=== PATIENT | male | born 1960 | race African-American/Black ===

== ENCOUNTER 2017-08-29 10:20 | Day surgery (SDC) | payer OTHER ==
[2017-08-29] MEDS ORDERED: Ringers Lactate 1,000 ML IV ONE (10:45)
[2017-08-29] MEDS ORDERED: LIDOCAINE 1% MPF 2 ML AMPULE ONE (12:23)
[2017-08-29] MEDS ORDERED: PROPOFOL 200 MG/20 ML VIAL IV ONE (12:23)
--- NOTE | 2017-08-29 16:19 | OP ---
Surgeon: Adalid Aiken MD Procedure Performed: Esophagogastroduodenoscopy. Indication For Procedure: Odynophagia at the level of the cricoid, probable in the upper esophagus. No significant dysphagia or epigastric symptoms. Plan For Anesthesia: Monitored anesthesia care. Complexity: Average. Technique: After obtaining informed consent from the patient and explaining risks and complications, which include, but are not limited to bleeding, infection, perforation, and anesthesia complications , the patient was placed in a left lateral position and sedation was given. From then on, the scope was advanced through the mouth and carefully guided up till the second portion of the duodenum. Afte r the completion of examination and all diagnostic maneuvers, the scope and equipment were withdrawn and procedure terminated in a safe manner. Findings: Esophagus: Very careful examination of the esophagus was done. There was no gross lesion seen in the entire esophagus. From the proximal to the distal portion, no evidence of ulceration or stenosis. The GE junction was at 42 cm. Stomach: Mild patchy erythema seen in the body and antrum biopsies taken. Upon retroflexion, a larg e mass was seen in the gastric fundic region. This was at least 4 cm in diameter. It had a very lavonne p central ulceration. It appeared firm to biopsy. Multiple biopsies taken from the margins as well as from the center, which was deep, but still firm. High suspicion of malignancy. Duodenum: The bulb and second portion appeared normal. Complications: None. Tolerance To Anesthesia: Excellent. Postoperative Diagnoses: Gastric mass highly suspicious of malignancy in the fundic region, gastriti s. Plan: 1.Await pathology results. 2.CT scan of abdomen and pelvis with contrast, may also need x-ray and labs. 3.Oral PPI once a day. 4.The patient will require surgery. I will discuss this with the patient and family and proceed fro m there. He needs to follow up with us in 1 week. US/MODL Voice ID: [id number] Report ID: [id number]
== END 2017-08-29 13:24 | disposition home or self-care (01) ==
LOC: OR 10:20
PROVIDERS: ATTEND Internal Medicine Gastroenterology
PROC: 0DB68ZX Excision of Stomach, Via Natural or Artificial Opening Endoscopic, Diagnostic (ICD-10-PCS; principal; 2017-08-29 12:30)
DX: K29.50 Unspecified chronic gastritis without bleeding (principal); B96.81 Helicobacter pylori [H. pylori] as the cause of diseases classified elsewhere; D48.1 Neoplasm of uncertain behavior of connective and other soft tissue; E66.9 Obesity, unspecified
CPT/HCPCS: 88305; 88312; J2001

== ENCOUNTER 2018-06-09 07:41 | Day surgery (SDC) | payer OTHER ==
--- OUTSIDE RECORDS SUMMARY | 2018-06-09 07:44 | XMS REPORT | Clinical Summary ---
:1960 Author Organization [facility] Address [address] [place] [address] Care Team Providers Name Role Phone Tyler Amador MD Primary Care Provider Allergies No Known Allergies Medications Medication Sig Dispensed Refills Start Date End Date Status pantoprazole Take 40 mg by 0 Active (PROTONIX) 40 MG EC mouth daily. tablet acetaminophen Take 2 tablets 180 tablet 0 02/08/2018 (TYLENOL) 500 MG (1,000 mg 9 tablet total) by mouth every 8 (eight) hours for 30 days. traMADol (ULTRAM) Take 1 tablet 10 tablet 0 02/08/2018 50 mg tablet (50 mg total) 8 by mouth every 6 (six) hours as needed for moderate pain for up to 3 days. imatinib (GLEEVEC) Take 1 tablet 30 tablet 8 02/12/2018 Discontinued 400 MG chemo tablet (400 mg total) 9 by mouth daily for 30 days. imatinib (GLEEVEC) Take 1 tablet 30 tablet 8 02/27/2018 Discontinued 400 MG chemo tablet (400 mg total) 9 by mouth daily for 30 days. imatinib (GLEEVEC) Take 1 tablet 30 tablet 8 02/27/2018 400 MG chemo tablet (400 mg total) 9 by mouth daily for 30 days. 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 chemotherapy 03/30/2018 Neoplasm of uncertain behavior of connective and other soft tissue 02/06/2018 Encounters Date Type Specialty Care Team Description 06/02/2018 Office Visit General Surgery Delmer Hinton MD gastrointestinal stromal tumor (GIST) of stomach (HCC) (Primary Dx) 05/22/2018 Orders Only Oncology Charles, On antineoplastic Addison, [place] chemotherapy (Primary Dx) 05/21/2018 Hospital Encounter Radiology Tennille Alvares MD PhD 05/21/2018 Hospital Encounter Radiology Tennille Alvares MD PhD 05/21/2018 Office Visit Oncology Giorgio, 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 (HCC) (Primary Dx); MD Tennille PhD On antineoplastic chemotherapy Miriam Orozco MD 05/19/2018 Orders Only Oncology Charles, Malignant Addison, MA gastrointestinal stromal tumor (GIST) of stomach (HCC) (Primary Dx) 04/15/2018 Telephone Oncology Tennille Alvares MD PhD 04/15/2018 Telephone Oncology Miriam Orozco MD 04/13/2018 Telephone Oncology Miriam Orozco MD 04/02/2018 Orders Only Oncology Charles, Malignant Add[place], MA gastrointestinal stromal tumor (GIST) of stomach (HCC) (Primary Dx) 04/02/2018 Orders Only Oncology Charles, Malignant [place], MA gastrointestinal stromal tumor (GIST) of stomach (HCC) (Primary Dx) 03/31/2018 Telephone Oncology Tayler Lainez, WAYNE 03/27/2018 Telephone Oncology Tayler Lainez RN 03/26/2018 Office Visit Oncology Giorgio, Neoplasm of uncertain behavior of connective and other soft tissue (Primary Dx); MD Tennille PhD 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 (HCC); Miriam Orozco On antineoplastic chemotherapy 03/23/2018 Orders Only Pharmacy Susan Valentin, PharmD 03/16/2018 Lab Lab Tennille Alvares MD PhD 03/16/2018 Telephone Oncology Tennille Alvares MD PhD 03/12/2018 Orders Only Oncology Tennille Alvares MD PhD 03/05/2018 Orders Only Oncology Ketty Oakley 03/04/2018 Telephone Oncology Miriam Orozco MD 03/03/2018 Telephone Oncology Miriam Orozco MD 03/02/2018 Telephone Oncology Tennille Alvares MD PhD 02/27/2018 Orders Only Oncology Tayler Lainez RN 02/27/2018 Orders Only Oncology Tayler Lainez RN 02/27/2018 Telephone Oncology Tennille Alvares MD PhD 02/27/2018 Telephone Oncology Tayler Lainez RN 02/27/2018 Orders Only Oncology Tayler Lainez RN 02/27/2018 Telephone Oncology Tennille Alvares MD PhD 02/26/2018 Telephone Oncology Tayler Lainez RN 02/25/2018 Telephone Oncology Tennille Alvares MD PhD 02/25/2018 Telephone Oncology Tennille Alvares MD PhD 02/20/2018 Telephone Oncology Tennille Alvares MD PhD 02/19/2018 Office Visit General Surgery Delmer Hinton MD stromal tumor (GIST) of stomach (HCC) (Primary Dx) 02/18/2018 Telephone Oncology Tayler Lainez RN 02/13/2018 Telephone Oncology Miriam Orozco MD 02/12/2018 Orders Only Oncology Tayler Lainez RN 02/10/2018 Telephone Oncology Miriam Orozco MD 02/10/2018 Telephone Oncology Miriam Orozco MD 02/09/2018 Orders Only Oncology Charles, GIST (gastrointestinal Addison, MALINDA stroma tumor), malignant, colon (HCC) (Primary Dx) 02/06/2018 Anesthesia Event General Surgery [facility] Sarika huynh, ABELARDO 02/06/2018 Surgery General Surgery Delmer Hinton Exploratory Laparotomy, MD Osman Diagnostic Laparoscopy,and, Gastric Nodule Biopsy, 02/06/2018 - Hospital Encounter General Surgery Delmer Hinton Neoplasm of uncertain 02/08/2018 MD Osman behavior of connective and other soft tissue 01/27/2018 Pre-Admit Testing Pre-Admission Delmer Hinton Preop testing ( Primary Appointment Testing MD Osman Dx) 01/13/2018 Hospital Encounter Radiology Delmer Hinton Canceled (Rosemarie Brewer MD Order Error) 01/09/2018 Hospital Encounter Radiology Delmer Hinton MD 12/25/2017 Office Visit General Surgery Delmer Hinton Stromal tumor of the MD Osman stomach (Primary Dx) after 06/08/2017 Family History Medical History Relation Name Comments Prostate cancer Father Kidney cancer Mother Relation Name Status Comments Father Mother Social History Tobacco Use Types Packs/Day Years Used Date Never Smoker Smokeless Tobacco: Never Used Alcohol Use Drinks/Week oz/Week Comments No Alcohol Habits Answer Date Recorded How often do you have a drink containing alcohol? Never 01/27/2018 How many drinks containing alcohol do you have on a typical Not asked day when you are drinking? How often do you have six or more drinks on one occasion? Not asked Sex Assigned at Date Recorded Not on file Job Start Date Occupation Industry Not on file Not on file Not on file Travel History Travel Start Travel End No recent travel history available. Last Filed Vital Signs Vital Sign Reading Time Taken Blood Pressure 145/80 03/26/2018 4:10 PM DISCOVERY GUIDE Pulse 97 03/26/2018 4:10 PM DISCOVERY GUIDE Temperature 36 C (96.8 F) 02/08/2018 7:47 AM DISCOVERY GUIDE Respiratory Rate 18 02/08/2018 7:47 AM DISCOVERY GUIDE Oxygen Saturation 98% 02/08/2018 7:47 AM DISCOVERY GUIDE Inhaled Oxygen Concentration - - Weight 120 kg (263 lb 9.6 oz) 03/26/2018 4:10 PM DISCOVERY GUIDE Height 175.3 cm (5' 9") 03/26/2018 4:10 PM DISCOVERY GUIDE Body Mass Index 38.93 03/26/2018 4:10 PM DISCOVERY GUIDE Plan of Treatment Date Type Specialty Care Team Description 06/18/2018 Office Visit Oncology Tennille Alvares MD PhD [address] [place] [address] [phone] Miriam Orozco MD [address] [facility] [address] [place] [address] Health Maintenance Due Date Last Done Comments COLON CANCER SCREENING 11/16/2009 SHINGLES VACCINES (#1) 11/16/2009 INFLUENZA VACCINE 09/24/2018 01/05/2018 Implants Implanted Type Area Carbon Furnace Operator Device Shelf Model / Identifier Expiration Serial / Date Lot Clip Ligtng Weck Hemoclip Plus W/ Tape Ti - [id number] Medical N/A: N/A TELEFLEX MEDICAL [id number] / Implanted: Qty: 1 on 02/06/2018 by Delmer Hinton MD Clips for / Internal Use Clip Ligtng Weck Hemoclip Plus W/ Tape Ti Med - [id number] Medical N/A: N/ A WECK CLOSURE [id number] / Implanted: Qty: 1 on 02/06/2018 by Delmer Hinton MD Clips for SYSTEMS / Internal Use Procedures Procedure Name Priority Date/Time Associated Comments Diagnosis CT CHEST EXTERNAL Routine 05/18/2018 8:52 Results for this STUDY AM CDT procedure are in the results section. CT ABD/PELVIC EXTERNAL Routine 05/18/2018 8:52 Results for this STUDY AM CDT procedure are in the results section. CT CHEST W CONTRAST Routine 03/12/2018 ABDOMEN W CONTRAST POC GLUCOSE Routine 02/07/2018 8:35 Results for this PM DISCOVERY GUIDE procedure are in the results section. POC GLUCOSE Routine 02/07/2018 4:39 Results for this PM DISCOVERY GUIDE procedure are in the results section. POC GLUCOSE Routine 02/07/2018 11:55 Results for this AM DISCOVERY GUIDE procedure are in the results section. POC GLUCOSE Routine 02/07/2018 8:37 Results for this AM DISCOVERY GUIDE procedure are in the results section. HC COMPLETE BLD COUNT Routine 02/07/2018 4:30 Results for this W/AUTO DIFF AM DISCOVERY GUIDE procedure are in the results section. ESTIMATED GFR Routine 02/07/2018 4:00 Results for this AM DISCOVERY GUIDE procedure are in the results section. PHOSPHORUS LEVEL Routine 02/07/2018 4:00 Results for this AM DISCOVERY GUIDE procedure are in the results section. MAGNESIUM LEVEL Routine 02/07/2018 4:00 Results for this AM DISCOVERY GUIDE procedure are in the results section. BASIC METABOLIC PANEL Routine 02/07/2018 4:00 Results for this AM DISCOVERY GUIDE procedure are in the results section. POC GLUCOSE Routine 02/06/2018 10:43 Results for this PM DISCOVERY GUIDE procedure are in the results section. POC GLUCOSE Routine 02/06/2018 2:07 Results for this PM DISCOVERY GUIDE procedure are in the results section. SURGICAL PATHOLOGY Routine 02/06/2018 11:43 Results for this REQUEST AM DISCOVERY GUIDE procedure are in the results section. SURGICAL PATHOLOGY Routine 02/06/2018 11:43 Results for this REQUEST AM DISCOVERY GUIDE procedure are in the results section. MISCELLANEOUS REFERRAL Routine 02/06/2018 11:43 Results for this TEST AM DISCOVERY GUIDE procedure are in the results section. XR CHEST 1 VW PORTABLE Routine 02/06/2018 11:00 Results for this AM DISCOVERY GUIDE procedure are in the results section. CENTRAL LINE Routine 02/06/2018 9:39 AM DISCOVERY GUIDE Procedure Note - Paul Novak MD - 02/06/2018 9:39 AM DISCOVERY GUIDE Central line Performed by: Paul Novak MD Authorized by: Paul Novak MD Start Time: 02/06/2018 8:58 AM End Time: 02/06/2018 9:03 AM Staff: Performed by: Anesthesiologist Preprocedure:patient identified, IV checked, site and side verified, risks and benefits discussed, procedure verified, surgical consent complete, patient position confirmed, monitors and equipment checked and pre-op evaluation complete MSBT: antiseptic used during central venous catheter insertion, all elements of maximal sterile barrier technique followed, hand hygiene performed prior to central venous catheter insertion, cap/gown used by other personnel during central venous catheter insertion, solutions labeled and all ports not used during insertion clamped TIme Out Performed: 02/06/2018 8:58 AM Indications: Indications: Vascular access Anesthesia: Anesthesia: General Procedure details: Patient position: Supine Catheter Type: Double lumen Catheter Size: 8 Fr Catheter Site: internal jugular vein Catheter site laterality: Right Ultrasound guidance used: No Ultrasound image saved: No Number of attempts: 1 Successful placement: Yes Guidewire removal: Guidewire removal is confirmed Guidewire removal witnessed by: Skyler Fang RN Post-procedure: Post-procedure: line sutured, sterile dressing applied per protocol and ports flushed with saline Post-procedure: Blood cleaned with CHG and sterile caps on all hubs Assessment: Blood return through all ports and free fluid flow Patient tolerance: Patient tolerated the procedure well with no immediate complications NV AN ELECTIVE ENDOTRACHEAL AIRWAY Routine 02/06/2018 9:35 AM DISCOVERY GUIDE Procedure Note - Paul Novak MD - 02/06/2018 9:35 AM DISCOVERY GUIDE ANESTHESIA INTUBATION Performed by: Paul Novak MD Authorized by: Paul Novak MD Location: OR Urgency: Elective Difficult Airway: No Preoxygenated with 100% O2: Yes C-spine Precautions Maintained Throughout: Yes Mask Ventilation: Easy mask Final Airway Type: Endotracheal airway Final Endotracheal Airway: ETT Technique Used: Direct laryngoscopy Blade Type: Lakhani Laryngoscope Blade/Videolaryngoscope Blade Size: 2 ETT Size (mm): 8.0 Measured from: Lips ETT to Lips (cm): 24 Placement Verified by: CO2 detection, direct visualization and equal breath sounds Laryngoscopic view: Grade IIa - partial view of glottis Rapid Sequence Induction (RSI): No Modified RSI: No Number of Attempts at Approach: 1 LAPAROSCOPY, DIAGNOSTIC 02/06/2018 8:25 AM DISCOVERY GUIDE Neoplasm of uncertain behavior of connective and other soft tissue Case Notes POSSIBLE EXTENDED RECOVERY NEEDED Special Needs POSSIBLE EXTENDED RECOVERY NEEDED ESTIMATED GFR Routine 01/27/2018 1:20 PM Results for this DISCOVERY GUIDE procedure are in the results section. TYPE AND SCREEN Routine 01/27/2018 1:20 PM Preop testing Results for this DISCOVERY GUIDE procedure are in the results section. COMPREHENSIVE METABOLIC Routine 01/27/2018 1:20 PM Preop testing Results for this PANEL DISCOVERY GUIDE procedure are in the results section. HC COMPLETE BLD COUNT Routine 01/27/2018 1:20 PM Preop testing Results for this W/AUTO DIFF DISCOVERY GUIDE procedure are in the results section. ECG PRE/POST OP Routine 01/27/2018 1:07 PM Preop testing Results for this DISCOVERY GUIDE procedure are in the results section. CT CHEST EXTERNAL STUDY Routine 09/12/2017 8:56 AM Results for this CDT procedure are in the results section. after 06/08/[address] Chest External Study (05/18/2018 8:52 AM CDT)Only the most recent of2 resultswithin the time period is included. Narrative Performed At This exam was not acquired at a [facility] facility and has not been [facility] interpreted by a [facility] Provider.The exam was imported into our imaging system for comparisons purposes. Performing Organization Address [facility] [place] Phone Number [employer] [address] [place] [address] CT Abd/Pelvic External Study (05/18/2018 8:52 AM CDT) Narrative Performed At This exam was not acquired at a [facility] facility and has not been [facility] interpreted by a [facility] Provider.The exam was imported into our imaging system for comparisons purposes. Performing Organization Address [facility] [place] Phone Number [employer] [address] [place] [address] CT Chest W Contrast Abdomen W Contrast (03/12/2018) Narrative Performed At POC glucose (02/07/2018 8:35 PM DISCOVERY GUIDE)Only the most recent of6 resultswithin the time period is included. POC glucose 119 (H) 65 - 99 mg/dL [facility] Comment: [facility] Notified RN Meter ID: [id number] Meeting Specialist: Sotero Varela Performing Organization Address City/State/Zipcode Phone Number [facility] DEPARTMENT OF PATHOLOGY AND [address] [place] [phone] CBC with platelet and differential (02/07/2018 4:30 AM DISCOVERY GUIDE)Only the most recent of2 resultswithin the time period is included. WBC 10.19 4.50 - 11.00 k/uL [facility] RBC 3.98 (L) 4.40 - 6.00 m/uL [facility] HGB 11.3 (L) 14.0 - 18.0 g/dL [facility] HCT 35.3 (L) 41.0 - 51.0 % [facility] MCV 88.7 82.0 - 100.0 fL [facility] MCH 28.4 27.0 - 34.0 pg [facility] MCHC 32.0 31.0 - 37.0 g/dL [facility] RDW - SD 48.5 37.0 - 55.0 fL [facility] MPV 10.5 8.8 - 13.2 fL [facility] Platelet count 191 150 - 400 k/uL [facility] Nucleated RBC 0.00 /100 WBC [facility] Neutrophils 63.8 39.0 - 69.0 % [facility] Lymphocytes 24.0 (L) 25.0 - 45.0 % [facility] Monocytes 10.7 (H) 0.0 - 10.0 % [facility] Eosinophils 0.9 0.0 - 5.0 % [facility] Basophils 0.3 0.0 - 1.0 % [facility] Immature granulocytes 0.3Comment: "Immature 0.0 - 1.0 % [facility] granulocytes" [facility] (promyelocytes, myelocytes, metamyelocytes) Specimen Blood Performing Organization Address City/[facility]/Zipcode Phone Number [facility] DEPARTMENT OF PATHOLOGY AND [address] [place] [id number] [place] [phone] Estimated GFR (02/07/2018 4:00 AM DISCOVERY GUIDE)Only the most recent of2 resultswithin the time period is included. Estimated GFR >=90 mL/min/1.73 m2 [facility] Comment: HOSPITAL CatergoryUnitsInterpretation G1 >=90 Normal or high G2 60-89Mildly decreased G2m37-83Znwhdn to moderately decreased [id number] to severely decreased G4 15-29Severely decreased G5 <15Kidney failure The eGFR was calculated using the Chronic Kidney Disease Epidemiology Collaboration (CKD-EPI) equation. Interpretation is based on recommendations of the National Kidney Foundation-Kidney Disease Outcomes Quality Initiative (NKF-KDOQI) published in 2014. Specimen Plasma specimen Performing Organization Address City/[facility] Phone Number [facility] DEPARTMENT OF PATHOLOGY AND [address] [place] [address] Phosphorus level (02/07/2018 4:00 AM DISCOVERY GUIDE) Phosphorus 3.4 2.4 - 4.5 mg/dL [facility] Specimen Plasma specimen Performing Organization Address City/[facility] Phone Number [facility] DEPARTMENT OF PATHOLOGY AND [address] [place] [address] Magnesium level (02/07/2018 4:00 AM DISCOVERY GUIDE) Magnesium 1.8 1.6 - 2.6 mg/dL [facility] Specimen Plasma specimen Performing Organization Address City/[facility] Phone Number [facility] DEPARTMENT OF PATHOLOGY AND [address] [place] [phone] Basic metabolic panel (02/07/2018 4:00 AM DISCOVERY GUIDE) Sodium 137 135 - 148 mEq/L [facility] Potassium 3.9 3.5 - 5.0 mEq/L [facility] Chloride 100 98 - 112 mEq/L [facility] CO2 25 24 - 31 mEq/L [facility] Anion gap 12@ANIO 7 - 15 mEq/L [facility] BUN 7 6 - 20 mg/dL [facility] Creatinine 0.66 (L) 0.70 - 1.20 mg/dL [facility] Glucose 109 (H) 65 - 99 mg/dL [facility] Calcium 8.5 8.3 - 10.2 mg/dL [facility] Specimen Plasma specimen Performing Organization Address City/State/Zipcode Phone Number [facility] DEPARTMENT OF PATHOLOGY AND [address] [place] [address] GENOMIC MEDICINE [facility] [address] [place] [address] Miscellaneous referral test (02/06/2018 11:43 AM DISCOVERY GUIDE) [facility] test name GI stromal tumor mutation [id number] [facility] test result SEE NOTE (A) [facility] Comment: Gastrointestinal Stromal Tumor Mutation [facility] test code [id number] Block ID [id number] - - - - - - - - - - - - - - - - - - - - - - - - - - - - - - GIST Interpretation Detected abnormal ---- 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 ([id number], [id number]) This result has been reviewed and approved by Zhanna Das, Computing Architect Test information: Gastrointestinal Stromal Tumor Mutation CHARACTERISTICS: This assay is designed to detect mutations in the KIT gene exons 9, 11, 13, 14, 17 or 18 and in PDGFRA gene exons 12, 14 or 18.Mutations in the KIT and PDGFRA genes may indicate responsiveness to certain targeted therapies. For specific treatment recommendations please refer to NCCN Clinical Practice Guidelines in Oncology for Soft Tissue Sarcoma (Gastrointestinal Stromal Tumor section) (www.nccn.org). GENES TESTED: KIT gene (NM_000222.2) exons 9, 11, 13, 14, 17, and 18 and PDGFRA gene (NM_006206.4) exons 12, 14, and 18 METHODOLOGY: Genomic DNA is isolated from microscopically-guided dissection of tumor tissue and then enriched for the targeted regions of the tested genes. The mutation status of the targeted genes is determined by massively parallel sequencing (next generation sequencing). The hg19 (GRCh37) reference sequence is used as a reference for identifying genetic mutations. LIMITATIONS: This test will not detect mutations in other locations within the KIT or PDGFRA genes, in other genes, or below the limit of detection. This test evaluates for variants in tumor tissue only and cannot distinguish between somatic and germline variants. It is possible that some large insertion/deletion mutations (especially those greater than 60bp) may not be detected. Tissue samples yielding at least 10ng are acceptable but may yield suboptimal results if yield is less than 50ng. LIMIT OF DETECTION: 5 percent mutant allele frequency for single nucleotide variants (SNV) and small to medium sized multi-nucleotide variants (MNV) (insertions/deletions less than 60bp). ANALYTICAL SENSITIVITY (PPA): Analytical sensitivity for all variant classes is available through this link: [email or web address]/Tests/Pdf/294. CLINICAL DISCLAIMER: Results of this test must always be interpreted within the clinical context and other relevant data and should not be used alone for a diagnosis of malignancy. This test is not intended to detect minimal residual disease. Test developed and characteristics determined by [facility]. See Compliance Statement B: [employer]/CS ---- Order comments Gastrointestinal Stromal Tumor Mutation BLOCK [id number] Gastrointestinal Stromal Tumor Mutation [id number] Test performed by: [facility] [address] [place], [place] Narrative Performed At [facility] Gastrointestinal Stromal Tumor [id number] block [id number] DOS: 02/06/2019 03/17/201811:37 [facility] Performing Organization Address City/State/Zipcode Phone Number [facility] [address] [place] [address] [facility] [address] [place] [address] Surgical pathology request (02/06/2018 11:43 AM DISCOVERY GUIDE)Only the most recent of2 resultswithin the time period is included. [facility] DEPARTMENT OF PATHOLOGY AND GENOMIC MEDICINE Surgical pathology See link below for PDF Lab [facility] DEPARTMENT OF report Report PATHOLOGY AND GENOMIC MEDICINE Result status This is Supplemental Report [facility] DEPARTMENT OF for [id number] PATHOLOGY AND GENOMIC MEDICINE Narrative Performed At [facility] DEPARTMENT OF PATHOLOGY AND GENOMIC Gastrointestinal Stromal Tumor MEDICINE [id number] [id number] DOS: 02/06/2019 03/17/201811:37 MPAJGS Performing Organization Address [facility] [place] Phone Number [facility] DEPARTMENT OF PATHOLOGY AND [address] [place] [address] GENOMIC MEDICINE XR Chest 1 Vw Portable (02/06/2018 11:00 AM DISCOVERY GUIDE) Narrative Performed At EXAMINATION:XR CHEST 1 VW PORTABLE [facility] CLINICAL HISTORY:57 years Male Confirm new central line placement [facility] COMPARISON:09/12/2017 IMPRESSION: 1.Right IJ line terminates over the proximal SVC. No pneumothorax. 2.Cardiomediastinal silhouette is enlarged with broadening of the superior mediastinum. Some of this is likely related to rotation. 3.Bibasilar atelectasis. No consolidation or effusion. 4.Degenerative changes in the spine. [facility]-[id number] Procedure Note Hm Interface, Radiology Results Incoming - 02/06/2018 11:15 AM DISCOVERY GUIDE EXAMINATION: XR CHEST 1 VW PORTABLE CLINICAL HISTORY:57 years Male Confirm new central line placement [facility] COMPARISON: 09/12/2017 IMPRESSION: 1. Right IJ line terminates over the proximal SVC. No pneumothorax. 2. Cardiomediastinal silhouette is enlarged with broadening of the superior mediastinum. Some of this is likely related to rotation. 3. Bibasilar atelectasis. No consolidation or effusion. 4. Degenerative changes in the spine. [facility]-[id number] Performing Organization Address [facility] Phone Number [facility] [address] [place] [address] Type and screen (01/27/2018 1:20 PM DISCOVERY GUIDE) ABO grouping O [facility] Rh type POS [facility] Antibody screen (gel) NEG [facility] Specimen Blood Performing Organization Address City/[facility]/Zipcode Phone Number [facility] DEPARTMENT OF PATHOLOGY AND [address] [place] [address] GENOMIC MEDICINE [address] [address] Comprehensive metabolic panel (01/27/2018 1:20 PM DISCOVERY GUIDE) Sodium 141 135 - 148 mEq/L [facility] Potassium 4.0 3.5 - 5.0 mEq/L [facility] Chloride 99 98 - 112 mEq/L [facility] CO2 26 24 - 31 mEq/L [facility] Anion gap 16@ANIO (H) 7 - 15 mEq/L [facility] BUN 12 6 - 20 mg/dL [facility] Creatinine 0.70 0.70 - 1.20 mg/dL [facility] Glucose 100 (H) 65 - 99 mg/dL [facility] Calcium 9.4 8.3 - 10.2 mg/dL [facility] Protein 7.6 6.3 - 8.3 g/dL [facility] Comment: [facility] [place] 4.6-7.0 g/dL 1 week 4.4-7.6 g/dL 7 months-1year5.1-7.3 g/dL 1-2 years5.6-7.5 g/dL >3 years6.0-8.0 g/dL 18-150 6.3-8.3 g/dL Albumin 3.5 3.5 - 5.0 g/dL [facility] A/G ratio 0.9 0.7 - 3.8 [facility] Alkaline phosphatase 70 40 - 129 U/L [facility] AST 39 10 - 50 U/L [facility] ALT 34 5 - 50 U/L [facility] Total bilirubin 0.3 0.0 - 1.2 mg/dL [facility] Specimen Plasma specimen Performing Organization Address City/[facility] DEPARTMENT OF PATHOLOGY AND [address] [place] [address] GENOMIC MEDICINE [address] [address] ECG Pre/Post Op (01/27/2018 1:07 PM DISCOVERY GUIDE) Ventricular rate 77 [facility] MUSE Atrial rate 77 [facility] MUSE NV interval 182 [facility] MUSE QRSD interval 82 [facility] MUSE QT interval 426 [facility] MUSE QTC interval 482 [facility] MUSE P axis 1 63 [facility] MUSE QRS axis 1 52 [facility] MUSE T wave axis -1 [facility] MUSE EKG impression Normal sinus rhythm-Prolonged QT-Abnormal [facility] MUSE ECG-No previous ECGs available- Narrative Performed At Performing Organization Address City/[facility] Phone Number [facility] [address] [place] [address] after 06/08/2017 Insurance Payer Benefit Plan / Group Subscriber ID Type Phone Address [employer] EN[employer] [address] Liability (Home) [address] [id number] Advance Directives Patient has advance care planning documents on file. For more information, please contact:[id number] [place] [address]
[2018-06-09] MEDS ORDERED: PROPOFOL 200 MG/20 ML VIAL IV ONE (08:02)
[2018-06-09] MEDS ORDERED: LANO/MINERAL OIL/PETRO 3.5 GM ONE (08:20)
[2018-06-09] MEDS ORDERED: LIDOCAINE 2% MPF 5 ML VIAL ONE (08:20)
[2018-06-09] MEDS ORDERED: Ringers Lactate 1,000 ML IV ONE (08:22)
--- NOTE | 2018-07-06 04:50 | OP ---
Surgeon: Adalid Aiken MD Procedure To Be Performed: Esophagogastroduodenoscopy. Indication For Procedure: Followup of gastrointestinal stromal tumor. Plan For Anesthesia: Monitored anesthesia care. Complexity: Average. Technique: After obtaining informed consent from the patient and explaining the risks and complicati ons which include, but are not limited to bleeding, infection, perforation, and anesthesia complicati on, the patient was placed in the left lateral position and sedation was given. From then on, the sc ope was advanced into the mouth and carefully guided up to the second portion of the duodenum. After the completion of examination, the scope and equipment were withdrawn and procedure was terminated i n a safe manner. Findings: Esophagus: No gross lesion seen in the entire esophagus. The GE junction was around 40 c m. Stomach: Mild patchy erythema was seen in the body and antrum. Biopsies taken. Subsequently, a ttention was directed to the gastric fundus, which was the site of the tumor. The tumor appeared to be around 3.5 cm in size. The lesion itself did not appear drastically as different from before, but the volume appeared to be a little less since it was more excavated than seen previously. Multiple biopsies were taken. Duodenum, the bulb, and second portion appeared normal. Complications: None. Tolerance: None. Anesthesia: Excellent. Postoperative Diagnosis: Gastrointestinal stromal tumor, gastritis. Plan: 1.Await pathology results. 2.Follow up with Dr. Hinton and Oncology as scheduled. /LUIS Voice ID: [id number] Report ID: [id number]
== END 2018-06-09 09:50 | disposition home or self-care (01) ==
LOC: OR 07:41
PROVIDERS: ATTEND Internal Medicine Gastroenterology
PROC: 0DB68ZX Excision of Stomach, Via Natural or Artificial Opening Endoscopic, Diagnostic (ICD-10-PCS; principal; 2018-06-09 09:00)
DX: C49.A2 Gastrointestinal stromal tumor of stomach (principal); K29.70 Gastritis, unspecified, without bleeding; K21.9 Gastro-esophageal reflux disease without esophagitis; M19.90 Unspecified osteoarthritis, unspecified site
CPT/HCPCS: 88305; 88312; J2704

== ENCOUNTER 2018-07-20 03:30 | Emergency (ER) | payer OTHER ==
--- OUTSIDE RECORDS SUMMARY | 2018-07-20 03:33 | XMS REPORT | Clinical Summary ---
:1960 Author Organization [facility] Address [address] [place] [address] Care Team Providers Name Role Phone Tyler Amador MD Primary Care Provider Allergies No Known Allergies Medications Medication Sig Dispensed Refills Start Date End Date Status acetaminophen-code Take 2 tablets by 30 tablet 0 07/16/2018 07/27/19 Active ine (TYLENOL WITH mouth every 6 19 CODEINE #3) 300-30 (six) hours as mg per tablet needed for moderate pain for up to 10 days. methocarbamol Take 1 tablet 20 tablet 0 07/16/2018 07/27/19 Active (ROBAXIN) 500 MG (500 mg total) by 19 tablet mouth every 8 (eight) hours as needed for muscle spasms for up to 10 days. traMADol (ULTRAM) Take 1 tablet (50 20 tablet 0 07/16/2018 07/27/19 Active 50 mg tablet mg total) by 19 mouth every 6 (six) hours as needed (mild pain) for up to 10 days. polyethylene Take 17 g by 30 packet 0 07/16/2018 08/16/19 Active glycol (MIRALAX) mouth daily as 19 17 gram packet needed for constipation for up to 30 days. magnesium Take 30 mL by 473 mL 0 07/16/2018 Active hydroxide mouth nightly as (magnesium needed hydroxide) 400 (constipation). mg/5 mL suspension pantoprazole Take 40 mg by 0 07/17/19 Discontinued (PROTONIX) 40 MG mouth daily. 19 EC tablet acetaminophen Take 2 tablets 180 tablet 0 02/08/2018 03/10/19 (TYLENOL) 500 MG (1,000 mg total) 19 tablet by mouth every 8 (eight) hours for 30 days. traMADol (ULTRAM) Take 1 tablet (50 10 tablet 0 02/08/2018 02/12/20 50 mg tablet mg total) by 18 mouth every 6 (six) hours as needed for moderate pain for up to 3 days. imatinib (GLEEVEC) Take 1 tablet 30 tablet 8 02/12/2018 02/27/19 Discontinued 400 MG chemo (400 mg total) by 19 tablet mouth daily for 30 days. imatinib (GLEEVEC) Take 1 tablet 30 tablet 8 02/27/2018 02/27/19 Discontinued 400 MG chemo (400 mg total) by 19 tablet mouth daily for 30 days. imatinib (GLEEVEC) Take 1 tablet 30 tablet 8 02/27/2018 03/29/19 400 MG chemo (400 mg total) by 19 tablet mouth daily for 30 days. 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 chemotherapy 03/30/2018 Neoplasm of uncertain behavior of connective and other soft tissue 02/06/2018 Encounters Date Type Specialty Care Team Description 07/17/2018 Telephone Oncology Miriam Orozco MD 07/09/2018 Anesthesia Event [facility] Sarika mahmood NP 07/09/2018 Surgery General Surgery Mary Jane, TOTAL GASTRECTOMY Delmer Brewer MD 07/09/2018 Hospital Encounter Cardiovascular Mary Jane, Malignant neoplasm of stomach, unspecified location (HCC) (Primary Dx); - Delmer Brewer MD Malignant gastric stromal tumor (HCC) 07/16/2018 07/07/2018 Telephone Oncology Tayler Lainez RN 07/06/2018 Pre-Admit Testing Pre-Admission Mary Jane Preop testing ( Primary Appointment Testing Delmer Brewer MD Dx) 07/03/2018 Telephone Oncology Miriam Orozco MD 06/02/2018 Office Visit General Surgery Obie Hinton MD gastrointestinal stromal tumor (GIST) of [...] 05/19/2018 Orders Only Oncology Charles, Malignant Addison, MALINDA gastrointestinal stromal tumor (GIST) of stomach (HCC) (Primary Dx) 04/15/2018 Telephone Oncology Tennille Alvares MD PhD 04/15/2018 Telephone Oncology Miriam rOozco MD 04/13/2018 Telephone Oncology Miriam Orozco MD 04/02/2018 Orders Only Oncology Charles, Malignant Addison, MA gastrointestinal stromal tumor (GIST) of stomach (HCC) (Primary Dx) 04/02/2018 Orders Only Oncology Charles, Malignant Addison, MA gastrointestinal stromal tumor (GIST) of stomach (HCC) (Primary Dx) 03/31/2018 Telephone Oncology Tayler Lainez RN 03/27/2018 Telephone Oncology Tayler Lainez RN 03/26/2018 Office Visit Oncology Giorgio, Neoplasm of uncertain behavior of connective and other soft tissue (Primary Dx); MD Tennille PhD 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 (HCC); Miriam Orozco, On antineoplastic chemotherapy 03/23/2018 Orders Only Pharmacy [...] MD PhD 02/19/2018 Office Visit General Surgery Mary Jane, Gastrointestinal Delmer Brewer MD stromal tumor (GIST) of stomach (HCC) (Primary Dx) 02/18/2018 Telephone Oncology Tayler Lainez RN 02/13/2018 Telephone Oncology Miriam Orozco MD 02/12/2018 Orders Only Oncology Tayler Lainez RN 02/10/2018 Telephone Oncology Miriam Orozco MD 02/10/2018 Telephone Oncology Miriam Orozco MD 02/09/2018 Orders Only Oncology Charles, GIST (gastrointestinal Addison, MALINDA stroma tumor), malignant, colon (HCC) (Primary Dx) 02/06/2018 Anesthesia Event General Surgery [facility] Sarika mahmood, ABELARDO 02/06/2018 Surgery General Surgery Mary Jane, Exploratory Delmer Brewer MD Laparotomy, Diagnostic Laparoscopy,and, Gastric Nodule Biopsy, 02/06/2018 Hospital Encounter General Surgery Mary Jane, Neoplasm of uncertain - Delmer Brewer MD behavior of connective 02/08/2018 and other soft tissue 01/27/2018 Pre-Admit Testing Pre-Admission Mary Jane, Preop testing ( Primary Appointment Testing Delmer Brewer MD Dx) 01/13/2018 Hospital Encounter Radiology Mary Jane Canceled (Schedule Delmer Brewer MD Order Error) 01/09/2018 Hospital Encounter Radiology Delmer Hinton MD 12/25/2017 Office Visit General Surgery Mary Jane, Stromal tumor of the Delmer Brewer MD stomach (Primary Dx) after 07/19/2017 Family History Medical History Relation Name Comments [...] Vital Sign Reading Time Taken Blood Pressure 122/67 07/16/2018 11:31 AM CDT Pulse 77 07/16/2018 11:31 AM CDT Temperature 36.9 C (98.4 F) 07/16/2018 11:31 AM CDT Respiratory Rate 18 07/16/2018 11:31 AM CDT Oxygen Saturation 98% 07/16/2018 11:31 AM CDT Inhaled Oxygen Concentration - - Weight 120 kg (264 lb 6.4 oz) 07/09/2018 7:55 AM CDT Height 175.3 cm (5' 9") 07/09/2018 7:55 AM CDT Body Mass Index 39.05 07/09/2018 7:55 AM CDT Plan of Treatment Date Type Specialty Care Team Description 08/06/2018 Office Visit Oncology Tennille Alvares MD PhD [address] [facility] [place], [place] [id number] Miriam Orozco MD [address] [facility] Floor [address] [place] [address] [phone] Health Maintenance Due Date Last Done Comments COLON CANCER SCREENING 11/16/2009 SHINGLES VACCINES (#1) 11/16/2009 INFLUENZA VACCINE 09/24/2018 01/05/2018 Implants 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 Shelf Model / Identifier Expiration Serial / Date Lot Clip Ligtng Weck Hemoclip Plus W/ Tape Ti Lg - [id number] Medical N/A: N/A TELEFLEX MEDICAL [id number] / Implanted: Qty: 1 on 02/06/2018 by Delmer Hinton MD Clips for / Internal Use Clip Ligtng Weck Hemoclip Plus W/ Tape Ti Med Lg - [id number] Medical N/A: N/ A WECK CLOSURE [id number] / Implanted: Qty: 1 on 02/06/2018 by Delmer Hinton MD Clips for SYSTEMS / Internal Use Clip Ligtng Weck Hemoclip Plus W/ Tape Ti Med - [id number] Medical N/A: N/ A WECK CLOSURE [id number] / Implanted: 07/09/2018 (Quantity not on file) Clips for SYSTEMS / Internal Use Clip Ligtng Weck Hemoclip Plus W/ Tape Ti Lg - [id number] Medical N/A: N/A TELEFLEX MEDICAL [id number] / Implanted: 07/09/2018 (Quantity not on file) Clips for / Internal Use Clip Ligtng Weck Hemoclip Plus W/ Tape Ti Med - [id number] Medical N/A: N/A TELEFLEX MEDICAL [id number] / Implanted: 07/09/2018 (Quantity not on file) Clips for / Internal Use Procedures Procedure Name Priority Date/Time Associated Comments Diagnosis POC GLUCOSE Routine 07/16/2018 11:32 Results for this AM CDT procedure are in the results section. POC GLUCOSE Routine 07/16/2018 7:22 Results for this AM CDT procedure are in the results section. ESTIMATED GFR Routine 07/16/2018 4:00 Results for this AM CDT procedure are in the results section. BASIC METABOLIC PANEL Routine 07/16/2018 4:00 Results for this AM CDT procedure are in the results section. POC GLUCOSE Routine 07/16/2018 3:28 Results for this AM CDT procedure are in the results section. HC COMPLETE BLD COUNT Routine 07/16/2018 3:20 Results for this W/AUTO DIFF AM CDT procedure are in the results section. POC GLUCOSE Routine 07/15/2018 11:26 Results for this PM CDT procedure are in the results section. POC GLUCOSE Routine 07/15/2018 7:44 Results for this PM CDT procedure are in the results section. POC GLUCOSE Routine 07/15/2018 4:12 Results for this PM CDT procedure are in the results section. POC GLUCOSE Routine 07/15/2018 11:07 Results for this AM CDT procedure are in the results section. POC GLUCOSE Routine 07/15/2018 8:16 Results for this AM CDT procedure are in the results section. ESTIMATED GFR Routine 07/15/2018 4:00 Results for this AM CDT procedure are in the results section. BASIC METABOLIC PANEL Routine 07/15/2018 4:00 Results for this AM CDT procedure are in the results section. POC GLUCOSE Routine 07/15/2018 3:58 Results for this AM CDT procedure are in the results section. HC COMPLETE BLD COUNT Routine 07/15/2018 3:40 Results for this W/AUTO DIFF AM CDT procedure are in the results section. POC GLUCOSE Routine 07/14/2018 11:17 Results for this PM CDT procedure are in the results section. POC GLUCOSE Routine 07/14/2018 7:10 Results for this PM CDT procedure are in the results section. POC GLUCOSE Routine 07/14/2018 3:30 Results for this PM CDT procedure are in the results section. POC GLUCOSE Routine 07/14/2018 11:47 Results for this AM CDT procedure are in the results section. POC GLUCOSE Routine 07/14/2018 7:42 Results for this AM CDT procedure are in the results section. ESTIMATED GFR Routine 07/14/2018 4:00 Results for this AM CDT procedure are in the results section. BASIC METABOLIC PANEL Routine 07/14/2018 4:00 Results for this AM CDT procedure are in the results section. HC COMPLETE BLD COUNT Routine 07/14/2018 3:30 Results for this W/AUTO DIFF AM CDT procedure are in the results section. POC GLUCOSE Routine 07/14/2018 3:14 Results for this AM CDT procedure are in the results section. POC GLUCOSE Routine 07/13/2018 11:46 Results for this PM CDT procedure are in the results section. POC GLUCOSE Routine 07/13/2018 7:35 Results for this PM CDT procedure are in the results section. POC GLUCOSE Routine 07/13/2018 6:43 Results for this PM CDT procedure are in the results section. POC GLUCOSE Routine 07/13/2018 3:13 Results for this PM CDT procedure are in the results section. POC GLUCOSE Routine 07/13/2018 10:26 Results for this AM CDT procedure are in the results section. FL UGI W KUB STAT 07/13/2018 9:34 Results for this AM CDT procedure are in the results section. POC GLUCOSE Routine 07/13/2018 4:12 Results for this AM CDT procedure are in the results section. ESTIMATED GFR Routine 07/13/2018 4:00 Results for this AM CDT procedure are in the results section. HC COMPLETE BLD COUNT Routine 07/13/2018 4:00 Results for this W/AUTO DIFF AM CDT procedure are in the results section. BASIC METABOLIC PANEL Routine 07/13/2018 4:00 Results for this AM CDT procedure are in the results section. POC GLUCOSE Routine 07/12/2018 11:10 Results for this PM CDT procedure are in the results section. POC GLUCOSE Routine 07/12/2018 7:52 Results for this PM CDT procedure are in the results section. POC GLUCOSE Routine 07/12/2018 4:27 Results for this PM CDT procedure are in the results section. POC GLUCOSE Routine 07/12/2018 12:21 Results for this PM CDT procedure are in the results section. POC GLUCOSE Routine 07/12/2018 8:17 Results for this AM CDT procedure are in the results section. HC COMPLETE BLD COUNT STAT 07/12/2018 6:00 Results for this W/AUTO DIFF AM CDT procedure are in the results section. ESTIMATED GFR STAT 07/12/2018 4:20 Results for this AM CDT procedure are in the results section. BASIC METABOLIC PANEL STAT 07/12/2018 4:20 Results for this AM CDT procedure are in the results section. POC GLUCOSE Routine 07/12/2018 4:15 Results for this AM CDT procedure are in the results section. POC GLUCOSE Routine 07/12/2018 12:06 Results for this AM CDT procedure are in the results section. POC GLUCOSE Routine 07/11/2018 7:36 Results for this PM CDT procedure are in the results section. POC GLUCOSE Routine 07/11/2018 4:43 Results for this PM CDT procedure are in the results section. POC GLUCOSE Routine 07/11/2018 12:04 Results for this PM CDT procedure are in the results section. POC GLUCOSE Routine 07/11/2018 8:31 Results for this AM CDT procedure are in the results section. POC GLUCOSE Routine 07/11/2018 4:19 Results for this AM CDT procedure are in the results section. POC GLUCOSE Routine 07/11/2018 12:10 Results for this AM CDT procedure are in the results section. POC GLUCOSE Routine 07/10/2018 7:35 Results for this PM CDT procedure are in the results section. POC GLUCOSE Routine 07/10/2018 5:09 Results for this PM CDT procedure are in the results section. POC GLUCOSE Routine 07/10/2018 12:10 Results for this PM CDT procedure are in the results section. POC GLUCOSE Routine 07/10/2018 8:08 Results for this AM CDT procedure are in the results section. POC GLUCOSE Routine 07/10/2018 5:05 Results for this AM CDT procedure are in the results section. ESTIMATED GFR Routine 07/10/2018 12:51 Results for this AM CDT procedure are in the results section. PHOSPHORUS LEVEL Routine 07/10/2018 12:51 Results for this AM CDT procedure are in the results section. MAGNESIUM LEVEL Routine 07/10/2018 12:51 Results for this AM CDT procedure are in the results section. LDH Routine 07/10/2018 12:51 Results for this AM CDT procedure are in the results section. HEPATIC FUNCTION Routine 07/10/2018 12:51 Results for this PANEL AM CDT procedure are in the results section. BASIC METABOLIC PANEL Routine 07/10/2018 12:51 Results for this AM CDT procedure are in the results section. PROTHROMBIN TIME WITH Routine 07/10/2018 12:05 Results for this INR AM CDT procedure are in the results section. HC COMPLETE BLD COUNT Routine 07/10/2018 12:05 Results for this W/AUTO DIFF AM CDT procedure are in the results section. POC GLUCOSE Routine 07/10/2018 12:04 Results for this AM CDT procedure are in the results section. POC GLUCOSE Routine 07/09/2018 8:57 Results for this PM CDT procedure are in the results section. GRAM STAIN Routine 07/09/2018 6:45 Results for this PM CDT procedure are in the results section. URINE CULTURE Routine 07/09/2018 6:45 Results for this PM CDT procedure are in the results section. POC GLUCOSE Routine 07/09/2018 5:28 Results for this PM CDT procedure are in the results section. URINALYSIS SCREEN AND Routine 07/09/2018 4:00 Results for this MICROSCOPY, WITH PM CDT procedure are in REFLEX TO CULTURE the results section. POC GLUCOSE Routine 07/09/2018 3:32 Results for this PM CDT procedure are in the results section. XR ABDOMEN 1 VW STAT 07/09/2018 12:16 Results for this PORTABLE PM CDT procedure are in the results section. ESTIMATED GFR Routine 07/09/2018 12:15 Results for this PM CDT procedure are in the results section. PHOSPHORUS LEVEL Routine 07/09/2018 12:15 Results for this PM CDT procedure are in the results section. MAGNESIUM LEVEL Routine 07/09/2018 12:15 Results for this PM CDT procedure are in the results section. BASIC METABOLIC PANEL Routine 07/09/2018 12:15 Results for this PM CDT procedure are in the results section. HC COMPLETE BLD COUNT Routine 07/09/2018 12:15 Results for this W/AUTO DIFF PM CDT procedure are in the results section. SURGICAL PATHOLOGY Routine 07/09/2018 10:28 Results for this REQUEST AM CDT procedure are in the results section. MAGNESIUM LEVEL STAT 07/09/2018 10:00 Results for this AM CDT procedure are in the results section. GLUCOSE LEVEL, STAT 07/09/2018 10:00 Results for this SYRINGE AM CDT procedure are in the results section. IONIZED CALCIUM, STAT 07/09/2018 10:00 Results for this ARTERIAL AM CDT procedure are in the results section. HEMOGLOBIN, SYRINGE STAT 07/09/2018 10:00 Results for this AM CDT procedure are in the results section. POTASSIUM, SYRINGE STAT 07/09/2018 10:00 Results for this AM CDT procedure are in the results section. SODIUM LEVEL, SYRINGE STAT 07/09/2018 10:00 Results for this AM CDT procedure are in the results section. ARTERIAL BLOOD GAS, STAT 07/09/2018 10:00 Results for this CORRECTED AM CDT procedure are in the results section. LACTIC ACID, SYRINGE STAT 07/09/2018 10:00 Results for this AM CDT procedure are in the results section. ARTERIAL LINE Routine 07/09/2018 9:53 AM CDT Procedure Note - Yocasta Perdue MD - 07/09/2018 9:53 AM CDT Arterial line Performed by: Yocasta Perdue MD Authorized by: Yocasta Perdue MD Staff: Anesthesiologist: Yocasta Perdue MD Pre-procedure: patient identified, IV checked, site and side verified, risks and benefits discussed, procedure verified, surgical consent complete, patient position confirmed, monitors and equipment checked and pre-op evaluation complete MSBT: antiseptic used, all elements of maximal sterile barrier technique followed and hand hygiene performed Indications: Indications: hemodynamic monitoring Anesthesia: Anesthesia: General Procedure Details: Arterial Line placement: Placed post induction Line placement site: Radial Line placement side: Left Arterial line gauge: 20 G Number of attempts: 1 Ultrasound guidance used: No Post-procedure: Post-procedure: Sterile dressing applied Post procedure circulation, sensation, movement: Normal and unchanged Patient tolerance: Patient tolerated the procedure well with no immediate complications GA AN ELECTIVE ENDOTRACHEAL AIRWAY Routine 07/09/2018 9:52 AM CDT Procedure Note - Yocasta Perdue MD - 07/09/2018 9:52 AM CDT Airway Performed by: Yocasta Perdue MD Authorized by: Yocasta Perdue MD Location: OR Urgency: Elective Difficult Airway: No Anesthesiologist: Yocasta Perdue MD Performed by: anesthesiologist Preoxygenated with 100% O2: Yes C-spine Precautions Maintained Throughout: No Mask Ventilation: Difficult mask (2 handed with vent and OPA) Final Airway Type: Endotracheal airway Final Endotracheal Airway: ETT Cuffed: Yes Technique Used: Video laryngoscopy Devices/Methods Used in Placement: Intubating stylet Insertion Site: Oral Blade Type: Susan Laryngoscope Blade/Videolaryngoscope Blade Size: 4 ETT Size (mm): 8.0 Cuff at minimum occlusion pressure: Yes Measured from: Teeth ETT to Teeth (cm): 22 Placement Verified by: CO2 detection and direct visualization Laryngoscopic view: Grade IIa - partial view of glottis Rapid Sequence Induction (RSI): No Modified RSI: No Number of Attempts at Approach: 3 or more preO2 > 3 min in reverse Tberg Eyes taped at LOC Mask ventilation requiring 2 hands/vent/size 10 OPA Excessive soft tissue and very large tongue requiring several tries with GS for sufficient view Dentition unchanged and intact GASTRECTOMY 07/09/2018 8:30 AM CDT Malignant gastric stromal tumor (HCC) Case Notes REQ 0830 START, PHYSICIAN HAS [facility] MEETING Special Needs REQ 0830 START, PHYSICIAN HAS [facility] MEETING ECG PRE/POST OP Routine 07/06/2018 2:39 PM Preop testing Results for this CDT procedure are in the results section. ESTIMATED GFR Routine 07/06/2018 2:27 PM Results for this CDT procedure are in the results section. TYPE AND SCREEN Routine 07/06/2018 2:27 PM Preop testing Results for this CDT procedure are in the results section. COMPREHENSIVE METABOLIC Routine 07/06/2018 2:27 PM Preop testing Results for this PANEL CDT procedure are in the results section. HC COMPLETE BLD COUNT Routine 07/06/2018 2:27 PM Preop testing Results for this W/AUTO DIFF CDT procedure are in the results section. CT CHEST EXTERNAL STUDY Routine 05/18/2018 8:52 AM Results for this CDT procedure are in the results section. CT ABD/PELVIC EXTERNAL Routine 05/18/2018 8:52 AM Results for this STUDY CDT procedure are in the results section. CT CHEST W CONTRAST Routine 03/12/2018 ABDOMEN W CONTRAST POC GLUCOSE Routine 02/07/2018 8:35 PM Results for this [facility] procedure are in the results section. POC GLUCOSE Routine 02/07/2018 4:39 PM Results for this [facility] procedure are in the results section. POC GLUCOSE Routine 02/07/2018 11:55 AM Results for this [facility] procedure are in the results section. POC GLUCOSE Routine 02/07/2018 8:37 AM Results for this [facility] procedure are in the results section. HC COMPLETE BLD COUNT Routine 02/07/2018 4:30 AM Results for this W/AUTO DIFF [facility] procedure are in the results section. ESTIMATED GFR Routine 02/07/2018 4:00 AM Results for this [facility] procedure are in the results section. PHOSPHORUS LEVEL Routine 02/07/2018 4:00 AM Results for this [facility] procedure are in the results section. MAGNESIUM LEVEL Routine 02/07/2018 4:00 AM Results for this [facility] procedure are in the results section. BASIC METABOLIC PANEL Routine 02/07/2018 4:00 AM Results for this [facility] procedure are in the results section. POC GLUCOSE Routine 02/06/2018 10:43 PM Results for this [facility] procedure are in the results section. POC GLUCOSE Routine 02/06/2018 2:07 PM Results for this [facility] procedure are in the results section. SURGICAL PATHOLOGY Routine 02/06/2018 11:43 AM Results for this REQUEST [facility] procedure are in the results section. SURGICAL PATHOLOGY Routine 02/06/2018 11:43 AM Results for this REQUEST [facility] procedure are in the results section. MISCELLANEOUS REFERRAL Routine 02/06/2018 11:43 AM Results for this TEST [facility] procedure are in the results section. XR CHEST 1 VW PORTABLE Routine 02/06/2018 11:00 AM Results for this [facility] procedure are in the results section. CENTRAL LINE Routine 02/06/2018 9:39 AM [facility] Procedure Note - Paul Novak MD - 02/06/2018 9:39 AM [facility] Central line Performed by: Paul Novak MD [...] the procedure well with no immediate complications GA AN ELECTIVE ENDOTRACHEAL AIRWAY Routine 02/06/2018 9:35 AM [facility] Procedure Note - Paul Novak MD - 02/06/2018 9:35 AM [facility] ANESTHESIA INTUBATION Performed by: Paul Novak MD [...] Approach: 1 LAPAROSCOPY, DIAGNOSTIC 02/06/2018 8:25 AM [facility] Neoplasm of uncertain behavior of connective and other soft tissue Case Notes POSSIBLE EXTENDED RECOVERY NEEDED Special Needs POSSIBLE EXTENDED RECOVERY NEEDED ESTIMATED GFR Routine 01/27/2018 1:20 PM Results for this [facility] procedure are in the results section. TYPE AND SCREEN Routine 01/27/2018 1:20 PM Preop testing Results for this [facility] procedure are in the results section. COMPREHENSIVE METABOLIC Routine 01/27/2018 1:20 PM Preop testing Results for this PANEL [facility] procedure are in the results section. HC COMPLETE BLD COUNT Routine 01/27/2018 1:20 PM Preop testing Results for this W/AUTO DIFF [facility] procedure are in the results section. ECG PRE/POST OP Routine 01/27/2018 1:07 PM Preop testing Results for this [facility] procedure are in the results section. CT CHEST EXTERNAL STUDY Routine 09/12/2017 8:56 AM Results for this CDT procedure are in the results section. after 07/19/2017 Results POC glucose (07/16/2018 11:32 AM CDT)Only the most recent of49 resultswithin the time period is included. Pathologist [facility] POC glucose 117 (H) 65 - 99 mg/dL [facility] Comment: [facility] Notified RN Meter ID: [id number] Tanning Drum Operator: Chloe Beebe Specimen Performing Organization Address City/[facility] Phone Number [facility] DEPARTMENT OF PATHOLOGY AND [address] [place] [id number] Estimated GFR (07/16/2018 4:00 AM CDT)Only the most recent of10 resultswithin the time period is included. [facility] Estimated GFR >=90 mL/min/1.73 [facility] Comment: HOSPITAL CatergoryUnitsInterpretation G1 >=90 Normal or high G2 60-89Mildly decreased [id number] to moderately decreased B0c08-24Jsoqosqydr to severely decreased G4 15-29Severely decreased G5 <15Kidney failure The eGFR was calculated using the Chronic Kidney Disease Epidemiology Collaboration (CKD-EPI) equation. Interpretation is based on recommendations of the National Kidney Foundation-Kidney Disease Outcomes Quality Initiative (NKF-KDOQI) published in 2014. Specimen Plasma specimen Performing Organization Address City/[facility]/Zipcode Phone Number [facility] DEPARTMENT OF PATHOLOGY AND [address] [place] [phone] [address] [address] Basic metabolic panel (07/16/2018 4:00 AM CDT)Only the most recent of8 resultswithin the time period is included. Sodium 139 135 - 148 mEq/L [facility] Potassium 3.9 3.5 - 5.0 mEq/L [facility] Chloride 101 98 - 112 mEq/L [facility] CO2 27 24 - 31 mEq/L [facility] Anion gap 11@ANIO 7 - 15 mEq/L [facility] BUN 9 6 - 20 mg/dL [facility] Creatinine 0.53 (L) 0.70 - 1.20 mg/dL [facility] Glucose 137 (H) 65 - 99 mg/dL [facility] Calcium 8.8 8.3 - 10.2 mg/dL [facility] Specimen Plasma specimen Performing Organization Address City/State/Zipcode Phone Number [facility] DEPARTMENT OF PATHOLOGY AND [address] [place] [address] GENOMIC MEDICINE [address] [address] CBC with platelet and differential (07/16/2018 3:20 AM CDT)Only the most recent of10 resultswithin the time period is included. WBC 10.95 4.50 - 11.00 [facility] k/uL HOSPITAL RBC 3.99 (L) 4.40 - 6.00 [facility] m/uL [facility] HGB 11.2 (L) 14.0 - 18.0 [facility]/dL [facility] HCT 36.3 (L) 41.0 - 51.0 % [facility] MCV 91.0 82.0 - 100.0 [facility] MCH 28.1 27.0 - 34.0 pg [facility] MCHC 30.9 (L) 31.0 - 37.0 [facility] g/dL [facility] RDW - SD 46.8 37.0 - 55.0 fL [facility] MPV 10.2 8.8 - 13.2 fL [facility] Platelet count 271 150 - 400 k/uL [facility] Nucleated RBC 0.00 /100 WBC [facility] Neutrophils 70.3 (H) 39.0 - 69.0 % [facility] Lymphocytes 18.5 (L) 25.0 - 45.0 % [facility] Monocytes 8.8 0.0 - 10.0 % [facility] Eosinophils 1.6 0.0 - 5.0 % [facility] Basophils 0.3 0.0 - 1.0 % [facility] Immature granulocytes 0.5Comment: 0.0 - 1.0 % [facility] "Immature HOSPITAL granulocytes" (promyelocytes , myelocytes, metamyelocytes ) Specimen Blood Performing Organization Address [facility] Phone Number [facility] DEPARTMENT OF PATHOLOGY AND [address] [place] [address] GENOMIC MEDICINE [address] [address] [place] UGI W KUB (07/13/2018 9:34 AM CDT) Specimen Narrative Performed At EXAMINATION:FL UGI W KUB [facility] CLINICAL HISTORY:h o gastric fundus GIST POD 4 s p total gastrectomy and jossue en y esophago- jejunostomyplease eval for anastomotic leak COMPARISON:None. Fluoroscopy time: 0.4 minutesSpot Films: 21Dose: 198.39 mGy FINDINGS: The patient swallowed water-soluble contrast without difficulty. The esophagus is grossly unremarkable. The esophagojejunostomy is widely patent. There is no evidence of contrast extravasation or obstruction. IMPRESSION: Normal postoperative examination status post total gastrectomy and esophagojejunostomy. No evidence of anastomotic leak. 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 Fluoroscopy time: 0.4 minutes Spot Films: 21 Dose: 198.39 mGy FINDINGS: The patient swallowed water-soluble contrast without difficulty. The esophagus is grossly unremarkable. The esophagojejunostomy is widely patent. There is no evidence of contrast extravasation or obstruction. IMPRESSION: Normal postoperative examination status post total gastrectomy and esophagojejunostomy. No evidence of anastomotic leak. [facility]-[id number] Performing Organization Address City/[facility]/Zipcode Phone Number [facility] [address] [place] [phone] Phosphorus level (07/10/2018 12:51 AM CDT)Only the most recent of3 resultswithin the time period is included. Phosphorus 3.3 2.4 - 4.5 mg/dL [facility] Specimen Plasma specimen Performing Organization Address City/[facility]ode Phone Number [facility] DEPARTMENT OF PATHOLOGY AND [address] [place] [phone] Magnesium level (07/10/2018 12:51 AM CDT)Only the most recent of4 resultswithin the time period is included. Magnesium 2.1 1.6 - 2.6 mg/dL [facility] Specimen Plasma specimen Performing Organization Address City/[facility] Phone Number [facility] DEPARTMENT OF PATHOLOGY AND [address] [place] [phone] LDH (07/10/2018 12:51 AM CDT) [facility] Signature LDH 189 87 - 225 U/L [facility] Specimen Plasma specimen Performing Organization Address [facility] Phone Number [facility] DEPARTMENT OF PATHOLOGY AND [address] [place] [phone] Hepatic function panel (07/10/2018 12:51 AM CDT) [facility] Signature Albumin 3.2 (L) 3.5 - 5.0 g/dL [facility] Total bilirubin 0.5 0.0 - 1.2 [facility] mg/dL [facility] Bilirubin direct <0.2 0.0 - 0.3 [facility] mg/dL [facility] Alkaline phosphatase 43 40 - 129 U/L [facility] Protein 6.6 6.3 - 8.3 g/dL [facility] Comment: HOSPITAL 4.6-7.0 g/dL 1 week 4.4-7.6 g/dL 7 months-1year5.1-7.3 g/dL 1-2 years5.6-7.5 g/dL >3 years6.0-8.0 g/dL 18-150 6.3-8.3 g/dL ALT 95 (H) 5 - 50 U/L [facility] AST 67 (H) 10 - 50 U/L [facility] Specimen Plasma specimen Performing Organization Address City/[facility]/Zipcode Phone Number [facility] DEPARTMENT OF PATHOLOGY AND [address] [place] [phone] [address] Prothrombin time with INR (07/10/2018 12:05 AM CDT) Prothrombin time 14.5 11.5 - 14.5 [facility] INR 1.2 [place] Comment: [facility] International Normalized Ratio (INR) is a therapeutic HOSPITAL monitoring tool for patients who are stable on oral anticoagulant therapy. An INR of 2.0-3.0 is suggested for deep vein thrombosis/pulmonary embolism. Specimen Blood Performing Organization Address [facility]ercode Phone Number [facility] DEPARTMENT OF PATHOLOGY AND [address] [place] [phone] [place] [phone] Gram stain (07/09/2018 6:45 PM CDT) Pathologist [facility] Gram stain result No WBC's or organisms seen. [facility] Comment: HOSPITAL Specimen Information Specimen Source: Urine Specimen Site: Perez Specimen Urine - Perez Performing Organization Address [facility]ercode Phone Number [facility] DEPARTMENT OF PATHOLOGY AND [address] [place] [phone] [address] Urine culture (07/09/2018 6:45 PM CDT) Pathologist [facility] Urine culture No growth after 24 hours [facility] isolate Comment: HOSPITAL Specimen Information Specimen Source: Urine Specimen Site: Perez Specimen Urine - Perez Performing Organization Address [facility] Centercomd Phone Number [facility] DEPARTMENT OF PATHOLOGY AND [address] [place] [phone] [place] [phone] Urinalysis screen and microscopy, with reflex to culture (07/09/2018 4:00 PM CDT) Specimen site Perez [facility] Color, UA Straw [facility] Appearance, UA Clear [facility] Specific gravity, UA 1.014 1.001 - 1.035 [facility] pH, UA 7.0 5.0 - 8.5 [facility] Protein, UA Negative Negative [facility] Glucose, UA Negative Negative [facility] Ketones, UA Negative Negative [facility] Bilirubin, UA Negative Negative [facility] Blood, UA Negative Negative [facility] Nitrite, UA Negative Negative [facility] Urobilinogen, UA <2.0 <2.0 [facility] Leukocyte esterase, Trace (A) Negative [facility] WBC, UA 17 (H) 0 - 1 /HPF [facility] RBC, UA <1 0 - 5 /HPF [facility] Bacteria, UA Few None seen [facility] Yeast, UA None seen [facility] Yeast with None seen [facility] pseudohyphae, HOSPITAL Specimen Urine Performing Organization Address City/[facility]ercode Phone Number [facility] DEPARTMENT OF PATHOLOGY AND [address] [place] [address] GENOMIC MEDICINE [facility] [address] [place] [address] XR Abdomen 1 Vw Portable (07/09/2018 12:16 PM CDT) Specimen Narrative Performed At EXAMINATION:XR ABDOMEN 1 VW PORTABLE [facility] CLINICAL HISTORY:s p total gastrectomy COMPARISON:None. FINDINGS: Nasogastric tube is located in the left upper quadrant to the left of midline. There are surgical emily in the midline. Drains and catheters overlie the right side of the abdomen. No dilated loops of small bowel are seen. IMPRESSION: As above [facility]-[id number] Procedure Note Interface, Radiology Results Incoming - 07/09/2018 12:26 PM CDT EXAMINATION: XR ABDOMEN 1 VW PORTABLE CLINICAL HISTORY: s p total gastrectomy COMPARISON: None. FINDINGS: Nasogastric tube is located in the left upper quadrant to the left of midline. There are surgical emily in the midline. Drains and catheters overlie the right side of the abdomen. No dilated loops of small bowel are seen. IMPRESSION: As above [facility]-[id number] Performing Organization Address City/[facility]ode Phone Number [facility] [address] [place] [address] Surgical pathology request (07/09/2018 10:28 AM CDT)Only the most recent of3 resultswithin the time period is included. [facility] DEPARTMENT OF PATHOLOGY AND GENOMIC MEDICINE Surgical pathology See link below [facility] DEPARTMENT OF report for PDF Lab PATHOLOGY AND Report GENOMIC MEDICINE Result status This is Final [facility] DEPARTMENT OF Report for PATHOLOGY AND [id number] GENOMIC MEDICINE Specimen Performing Organization Address City/[facility]ercode Phone Number [facility] DEPARTMENT OF PATHOLOGY AND [address] [place] [address] [facility] Sodium level, syringe (07/09/2018 10:00 AM CDT) Sodium, syringe 137 135 - 148 mEq/L [facility] Specimen Blood Performing Organization Address [facility]ercode Phone Number [facility] DEPARTMENT OF PATHOLOGY AND [address] [place] [phone] [place] [phone] Potassium, syringe (07/09/2018 10:00 AM CDT) Potassium, syringe 3.8 3.5 - 5.0 mEq/L [facility] Specimen Blood Performing Organization Address [facility] Centercomd Phone Number [facility] DEPARTMENT OF PATHOLOGY AND [address] [place] [phone] [place] [phone] Lactic acid, syringe (07/09/2018 10:00 AM CDT) Lactic acid, syringe 1.6 0.5 - 2.2 mmol/L [facility] Specimen Blood Performing Organization Address [facility] Phone Number [facility] DEPARTMENT OF PATHOLOGY AND [address] [place] [phone] Ionized calcium, arterial (07/09/2018 10:00 AM CDT) Ionized calcium, 1.00 (L) 1.11 - 1.32 [facility] arterial mmol/L [facility] Specimen Blood Performing Organization Address City/[facility]ercode Phone Number [facility] DEPARTMENT OF PATHOLOGY AND [address] [place] [phone] [place] [phone] Hemoglobin, syringe (07/09/2018 10:00 AM CDT) Hemoglobin, syringe 13.0 (L) 14.0 - 18.0 g/dL [facility] Specimen Blood Performing Organization Address [facility]ercode Phone Number [facility] DEPARTMENT OF PATHOLOGY AND [address] [place] [phone] [place] [phone] Glucose level, syringe (07/09/2018 10:00 AM CDT) Glucose, syringe 139 (H) 65 - 99 mg/dL [facility] Specimen Blood Performing Organization Address City/[facility]ercode Phone Number [facility] DEPARTMENT OF PATHOLOGY AND [address] [place] [phone] [address] Arterial blood gas, corrected (07/09/2018 10:00 AM CDT) pH, arterial 7.41 7.35 - 7.45 [facility] pCO2, arterial 41 35 - 45 mmHg [facility] pO2, arterial 174 (H) 80 - 90 mmHg [facility] Temperature, Celsius 35.5 Degrees C [facility] O2 saturation, 99 95 - 100 % [facility] HOSPITAL pH, arterial 7.43 [facility] HOSPITAL pCO2, arterial 38 mmHg [facility] HOSPITAL pO2, arterial 167 mmHg [facility] HOSPITAL Base excess, arterial 1 -2 - 2 mEq/L [facility] Specimen Blood Performing Organization Address [facility] Phone Number [facility] DEPARTMENT OF PATHOLOGY AND [address] [place] [phone] ECG Pre/Post Op (07/06/2018 2:39 PM CDT)Only the most recent of2 resultswithin the time period is included. Ventricular rate 67 [facility] Atrial rate 67 [facility] GA interval 184 [facility] QRSD interval 92 [facility] QT interval 428 [facility] QTC interval 452 [facility] P axis 1 62 [facility] QRS axis 1 8 [facility] T wave axis -24 [facility] MUSE EKG impression Normal sinus [facility] MUSE rhythm-Nonspecific T wave abnormality-Abnormal ECG-In automated comparison with ECG of 27-JAN-2018 13:07,-No significant change was found- Specimen Narrative Performed At Performing Organization Address City/[facility] Centercode Phone Number [facility] MUSE [address] [place] [phone] Type and screen (07/06/2018 2:27 PM CDT)Only the most recent of2 resultswithin the time period is included. ABO grouping O [facility] Rh type POS [facility] Antibody screen (gel) NEG [facility] Specimen Blood Performing Organization Address City/[facility]erc[facility] Phone Number [facility] DEPARTMENT OF PATHOLOGY AND [address] [place] [phone] Comprehensive metabolic panel (07/06/2018 2:27 PM CDT)Only the most recent of2 resultswithin the time period is included. Sodium 141 135 - 148 [facility] mEq/L [facility] Potassium 4.4 3.5 - 5.0 [facility] mEq/L [facility] Chloride 103 98 - 112 mEq/L [facility] CO2 26 24 - 31 mEq/L [facility] Anion gap 12@ANIO 7 - 15 mEq/L [facility] BUN 15 6 - 20 mg/dL [facility] Creatinine 0.72 0.70 - 1.20 [facility] mg/dL HOSPITAL Glucose 104 (H) 65 - 99 mg/dL [facility] Calcium 9.1 8.3 - 10.2 [facility] mg/dL [facility] Protein 7.7 6.3 - 8.3 g/dL [facility] Comment: HOSPITAL [place] 4.6-7.0 g/dL 1 week 4.4-7.6 g/dL 7 months-1year5.1-7.3 g/dL 1-2 years5.6-7.5 g/dL >3 years6.0-8.0 g/dL 18-150 6.3-8.3 g/dL Albumin 3.6 3.5 - 5.0 g/dL [facility] A/G ratio 0.9 0.7 - 3.8 [facility] Alkaline phosphatase 75 40 - 129 U/L [facility] AST 27 10 - 50 U/L [facility] ALT 26 5 - 50 U/L [facility] Total bilirubin <0.2 0.0 - 1.2 [facility] mg/dL HOSPITAL Specimen Plasma specimen Performing Organization Address City/[facility]ercode Phone Number [facility] DEPARTMENT OF PATHOLOGY AND [address] [place] [address] [facility] [address] [place] [address] CT Chest External Study (05/18/2018 8:52 AM CDT)Only the most recent of2 resultswithin the time period is included. Specimen Narrative Performed At This exam was not acquired at a [facility] facility and has not been [facility] interpreted by a [facility] Provider.The exam was imported into our imaging system for comparisons purposes. Performing Organization Address City/State/Zipcode Phone Number [facility] [address] [place] [address] CT Abd/Pelvic External Study (05/18/2018 8:52 AM CDT) Specimen Narrative Performed At This exam was not acquired at a [facility] facility and has not been [facility] interpreted by a [facility] Provider.The exam was imported into our imaging system for comparisons purposes. Performing Organization Address [facility] Cent[facility]ode Phone Number [facility] [address] [place] [address] Chest W Contrast Abdomen W Contrast (03/12/2018) Narrative Performed At Miscellaneous referral test (02/06/2018 11:43 AM SAW RUNNER) Pathologist [facility] test name GI stromal tumor [facility] mutation [id number] [facility] test result SEE NOTE (A) [facility] Comment: Gastrointestinal Stromal Tumor Mutation [facility] test code [id number] Block ID [id number] - - - - - - - - - - - - - - - - - - - - - - - - - - - - - - GIST Interpretation Detected abnormal ---- 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 ([id number], [id number]) This result has been reviewed and approved by Zhanna Das, Graphics Coordinator Test information: Gastrointestinal Stromal Tumor Mutation CHARACTERISTICS: [...] variant classes is available through this link: [email or web address] CLINICAL DISCLAIMER: Results of this test must always be interpreted within the clinical context and other relevant data and should not be used alone for a diagnosis of malignancy. This test is not intended to detect minimal residual disease. Test developed and characteristics determined by [employer]. See Compliance Statement B: [employer]/CS ---- Order comments Gastrointestinal Stromal Tumor Mutation BLOCK [id number] Gastrointestinal Stromal Tumor Mutation [id number] Test performed by: [employer] [address] [place], [place] [id number] Specimen Narrative Performed At [facility] Gastrointestinal Stromal Tumor [id number] block [id number] DOS: 02/06/2019 03/17/201811:37 MPAJGS Performing Organization Address City/State/Zipcode Phone Number [facility] [address] [place] [address] [facility] [address] [place] [address] XR Chest 1 Vw Portable (02/06/2018 11:00 AM SAW RUNNER) Specimen Narrative Performed At EXAMINATION:XR CHEST 1 VW PORTABLE HM [facility] CLINICAL HISTORY:57 years Male Confirm new central line placement [facility] COMPARISON:09/12/2017 IMPRESSION: 1.Right IJ line terminates over the proximal SVC. No pneumothorax. 2.Cardiomediastinal silhouette is enlarged with broadening of the superior mediastinum. Some of this is likely related to rotation. 3.Bibasilar atelectasis. No consolidation or effusion. 4.Degenerative changes in the spine. [facility]-[id number] Procedure Note Hm Interface, Radiology Results Incoming - 02/06/2018 11:15 AM SAW RUNNER EXAMINATION: XR CHEST 1 VW PORTABLE CLINICAL HISTORY:57 years Male Confirm new central line placement [facility] COMPARISON: 09/12/2017 IMPRESSION: 1. Right IJ line terminates over the proximal SVC. No pneumothorax. 2. Cardiomediastinal silhouette is enlarged with broadening of the superior mediastinum. Some of this is likely related to rotation. 3. Bibasilar atelectasis. No consolidation or effusion. 4. Degenerative changes in the spine. [facility]-[id number] Performing Organization Address [facility] Centercomd Phone Number [facility] [address] [place] [address] after 07/19/2017 Advance Directives Patient has advance care planning documents on file. For more information, please contact:Ariza [id number] [place] [phone]
--- NOTE | 2018-07-20 04:17 | ER ---
Nurse's Notes [facility] Name: Kenny Noriega Age: 57 yrs Sex: Male : 1960 Arrival Date: 07/20/2018 Time: 03:33 Bed 19 Private MD: Diagnosis: Enterostomy complications;Enterostomy malfunction Presentation: 07/20 03:40 Presenting complaint: Patient states: "my j-tube's clogged since 0200H this morning". cc3 Transition of care: patient was not received from another setting of care. Onset of symptoms was July 20, 2018. Risk Assessment: Do you want to hurt yourself or someone else? Patient reports no desire to harm self or others. Initial Sepsis Screen: Does the patient meet any 2 criteria? No. Patient's initial sepsis screen is negative. Does the patient have a suspected source of infection? No. Patient's initial sepsis screen is negative. Care prior to arrival: None. 03:40 Method Of Arrival: Ambulatory cc3 03:40 Acuity: MARNI 4 cc3 Triage Assessment: 03:40 General: Appears in no apparent distress. comfortable, Behavior is calm, cooperative, cc3 appropriate for age. Pain: Denies pain. EENT: No signs and/or symptoms were reported regarding the EENT system. Neuro: Level of Consciousness is awake, alert, obeys commands, Oriented to person, place, time, situation, Appropriate for age. Cardiovascular: Denies chest pain, Patient's skin is warm and dry. Respiratory: Airway is patent Respiratory effort is even, unlabored, Respiratory pattern is regular, symmetrical. GI: Reports clogged J-tube. : No signs and/or symptoms were reported regarding the genitourinary system. Derm: No signs and/or symptoms reported regarding the dermatologic system. Musculoskeletal: Circulation, motion, and sensation intact. Range of motion: intact in all extremities. Historical: - Allergies: 03:40 No Known Allergies; cc3 - PMHx: 04:07 Cancer; gs - PSHx: 03:40 gatsric bypass; cc3 - Immunization history:: Adult Immunizations not up to date. - Social history:: The patient lives at home, Smoking status: Patient/guardian denies using tobacco, never smoked. - Ebola Screening: : No symptoms or risks identified at this time. Screenin:40 Abuse screen: Denies threats or abuse. Denies injuries from another. Nutritional cc3 screening: No deficits noted. Tuberculosis screening: No symptoms or risk factors identified. Fall Risk Ambulatory Aid- None/Bed Rest/Nurse Assist (0 pts). Gait- Normal/Bed Rest/Wheelchair (0 pts) Mental Status- Oriented to own ability (0 pts). Assessment: 03:40 General: see triage assessment. cc3 04:36 Reassessment: Patient appears in no apparent distress at this time. Patient and/or cc3 family updated on plan of care and expected duration. Pain level reassessed. Patient is alert, oriented x 3, equal unlabored respirations, skin warm/dry/pink. Dr. Mittal discharged home the patient, no prescription given. No IV cannula in situ. J-tube dressing changed as per patient request. Patient left ER vitally stable and ambulatory. Patient denies pain at this time. Patient states symptoms have improved. Vital Signs: 03:40 BP 128 / 93; Pulse 92; Resp 17 S; Temp 98.6(O); Pulse Ox 100% on R/A; Weight 117.93 kg cc3 (R); Height 5 ft. 9 in. (175.26 cm) (R); Pain 0/10; 03:40 Body Mass Index 38.39 (117.93 kg, 175.26 cm) cc3 ED Course: 03:33 Patient arrived in ED. am2 03:40 Arm band placed on right wrist. Patient notified of wait time. cc3 03:40 Patient has correct armband on for positive identification. Bed in low position. Call cc3 light in reach. Side rails up X 1. Pulse ox on. NIBP on. 03:42 Francisco Mittal MD is Attending Physician. 04:07 Hayley Garcia is Primary Nurse. cc3 04:12 Triage completed. cc3 04:36 No provider procedures requiring assistance completed. Patient did not have IV access cc3 during this emergency room visit. Administered Medications: No medications were administered Outcome: 04:17 Discharge ordered by . gs 04:36 Patient left the ED. cc3 04:36 Discharged to home ambulatory. cc3 04:36 Condition: stable 04:36 Discharge instructions given to patient, Instructed on discharge instructions, follow up and referral plans. Demonstrated understanding of instructions, follow-up care. Signatures: Carmen Franklin am2 Francisco Mittal MD MD Hayley Garcia cc3
--- NOTE | 2018-07-20 04:17 | EDPHYS ---
Physician Documentation [facility] Name: Kenny Noriega Age: 57 yrs Sex: Male : 1960 Arrival Date: 07/20/2018 Time: 03:33 Bed 19 Private MD: ED Physician Francisco Mittal HPI: 07/20 04:06 This 57 yrs old Black Male presents to ER via Unassigned with complaints of Feeding gs tube clogged. 04:06 The affected area is on the abdomen. The patient has experienced a previous episode. gs Historical: - Allergies: 03:40 No Known Allergies; cc3 - PMHx: 04:07 Cancer; gs - PSHx: 03:40 gatsric bypass; cc3 - Immunization history:: Adult Immunizations not up to date. - Social history:: The patient lives at home, Smoking status: Patient/guardian denies using tobacco, never smoked. - Ebola Screening: : No symptoms or risks identified at this time. ROS: 04:07 All other systems are negative. gs Exam: 04:07 Cardiovascular: Regular rate and rhythm with a normal S1 and S2. No gallops, murmurs, gs or rubs. Normal PMI, no JVD. No pulse deficits. Respiratory: Lungs have equal breath sounds bilaterally, clear to auscultation and percussion. No rales, rhonchi or wheezes noted. No increased work of breathing, no retractions or nasal flaring. 04:07 Constitutional: The patient appears alert, awake. 04:07 Abdomen/GI: Palpation: abdomen is soft and non-tender, in all quadrants. 04:07 Abdomen/GI: clogged jtube. Vital Signs: 03:40 BP 128 / 93; Pulse 92; Resp 17 S; Temp 98.6(O); Pulse Ox 100% on R/A; Weight 117.93 kg cc3 (R); Height 5 ft. 9 in. (175.26 cm) (R); Pain 0/10; 03:40 Body Mass Index 38.39 (117.93 kg, 175.26 cm) cc3 Procedures: 04:07 irrigated with warm water was able to unclog, good flow. gs MDM: 03:50 Patient medically screened. gs 04:07 Data reviewed: vital signs, nurses notes. gs Administered Medications: No medications were administered Disposition: 07/20/18 04:17 Discharged to Home. Impression: Enterostomy complications, Enterostomy malfunction. - Condition is Stable. - Medication Reconciliation Form, Thank You Letter, Antibiotic Education, Prescription Opioid Use form. - Follow up: Private Physician; When: 2 - 3 days; Reason: Re-evaluation by your physician. Signatures: Francisco Mittal MD MD Hayley Garcia cc3 Corrections: (The following items were deleted from the chart) 04:36 04:17 07/20/2018 04:17 Discharged to Home. Impression: Enterostomy complications; cc3 Enterostomy malfunction. Condition is Stable. Forms are Medication Reconciliation Form, Thank You Letter, Antibiotic Education, Prescription Opioid Use. Follow up: Private Physician; When: 2 - 3 days; Reason: Re-evaluation by your physician. gs
== END 2018-07-20 04:36 | disposition home or self-care (01) ==
LOC: ER 03:30
DX: K94.13 Enterostomy malfunction (principal); Z85.9 Personal history of malignant neoplasm, unspecified
CPT/HCPCS: 99283

== ENCOUNTER 2018-07-20 09:09 | Emergency (ER) | payer OTHER ==
--- OUTSIDE RECORDS SUMMARY | 2018-07-20 09:13 | XMS REPORT | Clinical Summary ---
:1960 Author Organization [facility] Address [address] [place] [address] Care Team Providers Name Role Phone Tyler [...] Orozco MD 07/09/2018 Anesthesia Event General [facility] Sarika mahmood NP 07/09/2018 Surgery General [...] Oncology Miriam Orozco MD 03/02/2018 Telephone Oncology eTnnille Alvares MD PhD 02/27/2018 Orders Only Oncology [...] (Primary Dx) 02/06/2018 Anesthesia Event General Surgery [facility] Sarika mahmood, ABELARDO 02/06/2018 Surgery General Surgery [...] Visit Oncology Tennille Alvares MD PhD [address] [facility] [place], [place] [phone] Miriam Orozco MD [address] [facility] Floor [address] [place] [address] [phone] Health Maintenance Due Date Last Done Comments COLON CANCER SCREENING 11/16/2009 SHINGLES VACCINES (#1) 11/16/2009 INFLUENZA VACCINE 09/24/2018 01/05/2018 Implants Implanted Type Area Hand Laster Device Shelf Model / Identifier Expiration Serial / Date Lot Clip Ligtng Weck Hemoclip Plus W/ Tape Ti Lg - [id number] Medical N/A: N/A TELEFLEX MEDICAL [id number] / Implanted: Qty: 1 on 02/06/2018 by Delmer Hinton MD Clips for / Internal Use Clip Ligtng Weck Hemoclip Plus W/ Tape Ti Med Lg - [id number] Medical N/A: N/ A WECK CLOSURE [id number] / Implanted: Qty: 1 on 02/06/2018 by Delmer Hinton MD Clips for SYSTEMS / Internal Use Clip Ligtng Weck Hemoclip Plus W/ Tape Ti Med - [id number] Medical N/A: N/ A WECK CLOSURE [id number] / Implanted: 07/09/2018 (Quantity not on file) Clips for SYSTEMS / Internal Use Clip Ligtng Weck Hemoclip Plus W/ Tape Ti Lg - [id number] Medical N/A: N/A TELEFLEX MEDICAL [id number] / Implanted: 07/09/2018 (Quantity not on file) Clips for / Internal Use Clip Ligtng Weck Hemoclip Plus W/ Tape Ti Med - [id number] Medical N/A: N/A TELEFLEX MEDICAL [id number] / Implanted: 07/09/2018 (Quantity not on file) [...] the procedure well with no immediate complications MD AN ELECTIVE ENDOTRACHEAL AIRWAY Routine 07/09/2018 9:52 [...] Routine 02/07/2018 8:[address] ASSISTANT procedure are in the results section. POC GLUCOSE Routine 02/07/2018 4:[address] ASSISTANT procedure are in the results section. POC GLUCOSE Routine 02/07/2018 11:55 AM Results for this COURT ASSISTANT procedure are in the results section. POC GLUCOSE Routine 02/07/2018 8:37 AM Results for this [address] ASSISTANT procedure are in the results section. HC COMPLETE BLD COUNT Routine 02/07/2018 4:30 AM Results for this W/AUTO DIFF COURT ASSISTANT procedure are in the results section. ESTIMATED GFR Routine 02/07/2018 4:00 AM Results for this [address] ASSISTANT procedure are in the results section. PHOSPHORUS LEVEL Routine 02/07/2018 4:00 AM Results for this [address] ASSISTANT procedure are in the results section. MAGNESIUM LEVEL Routine 02/07/2018 4:00 AM Results for this [address] ASSISTANT procedure are in the results section. BASIC METABOLIC PANEL Routine 02/07/2018 4:00 AM Results for this [address] ASSISTANT procedure are in the results section. POC GLUCOSE Routine 02/06/2018 10:[address] ASSISTANT procedure are in the results section. POC GLUCOSE Routine 02/06/2018 2:[address] ASSISTANT procedure are in the results section. SURGICAL PATHOLOGY Routine 02/06/2018 11:43 AM Results for this REQUEST COURT ASSISTANT procedure are in the results section. SURGICAL PATHOLOGY Routine 02/06/2018 11:43 AM Results for this REQUEST COURT ASSISTANT procedure are in the results section. MISCELLANEOUS REFERRAL Routine 02/06/2018 11:43 AM Results for this TEST COURT ASSISTANT procedure are in the results section. XR CHEST 1 VW PORTABLE Routine 02/06/2018 11:00 AM Results for this [address] ASSISTANT procedure are in the results section. CENTRAL LINE Routine 02/06/2018 9:[address] ASSISTANT Procedure Note - Paul Novak MD - 02/06/2018 9:[address] ASSISTANT Central line Performed by: Paul Novak MD [...] the procedure well with no immediate complications MD AN ELECTIVE ENDOTRACHEAL AIRWAY Routine 02/06/2018 9:[address] ASSISTANT Procedure Note - Paul Novak MD - 02/06/2018 9:[address] ASSISTANT ANESTHESIA INTUBATION Performed by: Paul Novak MD [...] Approach: 1 LAPAROSCOPY, DIAGNOSTIC 02/06/2018 8:[address] ASSISTANT Neoplasm of uncertain behavior of connective and other soft tissue Case Notes POSSIBLE EXTENDED RECOVERY NEEDED Special Needs POSSIBLE EXTENDED RECOVERY NEEDED ESTIMATED GFR Routine 01/27/2018 1:20 PM Results for this COURT ASSISTANT procedure are in the results section. TYPE AND SCREEN Routine 01/27/2018 1:20 PM Preop testing Results for this COURT ASSISTANT procedure are in the results section. COMPREHENSIVE METABOLIC Routine 01/27/2018 1:20 PM Preop testing Results for this PANEL COURT ASSISTANT procedure are in the results section. HC COMPLETE BLD COUNT Routine 01/27/2018 1:20 PM Preop testing Results for this W/AUTO DIFF COURT ASSISTANT procedure are in the results section. ECG PRE/POST OP Routine 01/27/2018 1:07 PM Preop testing Results for this COURT ASSISTANT procedure are in the results section. CT CHEST EXTERNAL STUDY Routine 09/12/2017 8:56 AM Results for this CDT procedure are in the results section. after 07/19/2017 Results POC glucose (07/16/2018 11:32 AM CDT)Only the most recent of49 resultswithin the time period is included. Pathologist [facility] POC glucose 117 (H) 65 - 99 mg/dL [facility] Comment: [facility] Notified RN Meter ID: [id number] Pin Attacher: Chloe [facility] Specimen Performing Organization Address City/[facility] Phone Number [facility] DEPARTMENT OF PATHOLOGY AND [address] [place] [address] Estimated GFR (07/16/2018 4:00 AM CDT)Only the most recent of10 resultswithin the time period is included. [facility] Estimated GFR >=90 mL/min/1.73 [facility] Comment: HOSPITAL CatergoryUnitsInterpretation G1 >=90 Normal or high G2 60-89Mildly decreased U9s13-14Phtbll to moderately decreased U8r97-85Iucnofejqp to severely decreased G4 15-29Severely decreased G5 <15Kidney failure The eGFR was calculated using the Chronic Kidney Disease Epidemiology Collaboration (CKD-EPI) equation. Interpretation is based on recommendations of the National Kidney Foundation-Kidney Disease Outcomes Quality Initiative (NKF-KDOQI) published in 2014. Specimen Plasma specimen Performing Organization Address City/[facility]/Zipcode Phone Number [facility] DEPARTMENT OF PATHOLOGY AND [address] [place] [phone] [address] Basic metabolic panel (07/16/2018 4:00 AM CDT)Only the most recent of8 resultswithin the time period is included. Sodium 139 135 - 148 mEq/L [facility] Potassium 3.9 3.5 - 5.0 mEq/L [facility] Chloride 101 98 - 112 mEq/L [facility] CO2 27 24 - 31 mEq/L [facility] Anion gap 11@ANIO 7 - 15 mEq/L [facility] BUN 9 6 - 20 mg/dL [facility] Creatinine 0.53 (L) 0.70 - 1.20 mg/dL [facility] Glucose 137 (H) 65 - 99 mg/dL [facility] Calcium 8.8 8.3 - 10.2 mg/dL [facility] Specimen Plasma specimen Performing Organization Address City/State/Zipcode Phone Number [facility] DEPARTMENT OF PATHOLOGY AND [address] [place] [address] GENOMIC MEDIC[address] [address] CBC with platelet and differential (07/16/2018 3:20 AM CDT)Only the most recent of10 resultswithin the time period is included. WBC 10.95 4.50 - 11.00 [facility] k/uL HOSPITAL RBC 3.99 (L) 4.40 - 6.00 [facility] m/uL [facility] HGB 11.2 (L) 14.0 - 18.0 [facility]/dL [facility] HCT 36.3 (L) 41.0 - 51.0 % [facility] MCV 91.0 82.0 - 100.0 [facility] MCH 28.1 27.0 - 34.0 pg [facility] MCHC 30.9 (L) 31.0 - 37.0 [facility] g/dL [facility] RDW - SD 46.8 37.0 - 55.0 fL [facility] MPV 10.2 8.8 - 13.2 fL [facility] Platelet count 271 150 - 400 k/uL [facility] Nucleated RBC 0.00 /100 WBC [facility] Neutrophils 70.3 (H) 39.0 - 69.0 % [facility] Lymphocytes 18.5 (L) 25.0 - 45.0 % [facility] Monocytes 8.8 0.0 - 10.0 % [facility] Eosinophils 1.6 0.0 - 5.0 % [facility] Basophils 0.3 0.0 - 1.0 % [facility] Immature granulocytes 0.5Comment: 0.0 - 1.0 % [facility] "Immature HOSPITAL granulocytes" (promyelocytes , myelocytes, metamyelocytes ) Specimen Blood Performing Organization Address [facility]code Phone Number [facility] DEPARTMENT OF PATHOLOGY AND [address] [place] [address] GENOMIC MEDICINE [address] [address] [place] UGI W KUB (07/13/2018 9:34 AM [...] and esophagojejunostomy. No evidence of anastomotic leak. [facility]-[id number] Procedure Note [facility], Radiology Results Incoming - 07/13/2018 11:17 [...] and esophagojejunostomy. No evidence of anastomotic leak. [facility]-[id number] Performing Organization Address City/[facility]/Zipcode Phone Number [facility] [address] [place] [address] Phosphorus level (07/10/2018 12:51 AM CDT)Only the most recent of3 resultswithin the time period is included. Phosphorus 3.3 2.4 - 4.5 mg/dL [facility] Specimen Plasma specimen Performing Organization Address City/[facility]code Phone Number [facility] DEPARTMENT OF PATHOLOGY AND [address] [place] [address] Magnesium level (07/10/2018 12:51 AM CDT)Only the most recent of4 resultswithin the time period is included. Magnesium 2.1 1.6 - 2.6 mg/dL [facility] Specimen Plasma specimen Performing Organization Address City/[facility] Phone Number [facility] DEPARTMENT OF PATHOLOGY AND [address] [place] [phone] LDH (07/10/2018 12:51 AM CDT) [facility] Signature LDH 189 87 - 225 U/L [facility] Specimen Plasma specimen Performing Organization Address [facility] Phone Number [facility] DEPARTMENT OF PATHOLOGY AND [address] [place] [address] Hepatic function panel (07/10/2018 12:51 AM CDT) [facility] Signature Albumin 3.2 (L) 3.5 - 5.0 g/dL [facility] Total bilirubin 0.5 0.0 - 1.2 [facility] mg/dL [facility] Bilirubin direct <0.2 0.0 - 0.3 [facility] mg/dL [facility] Alkaline phosphatase 43 40 - 129 U/L [facility] Protein 6.6 6.3 - 8.3 g/dL [facility] Comment: HOSPITAL 4.6-7.0 g/dL 1 week 4.4-7.6 g/dL 7 months-1year5.1-7.3 g/dL 1-2 years5.6-7.5 g/dL >3 years6.0-8.0 g/dL 18-150 6.3-8.3 g/dL ALT 95 (H) 5 - 50 U/L [facility] AST 67 (H) 10 - 50 U/L [facility] Specimen Plasma specimen Performing Organization Address City/[facility]/Zipcode Phone Number [facility] DEPARTMENT OF PATHOLOGY AND [address] [place] [phone] [address] Prothrombin time with INR (07/10/2018 12:05 AM CDT) Prothrombin time 14.5 11.5 - 14.5 [facility] INR 1.2 [facility] Comment: [facility] International Normalized Ratio (INR) is a therapeutic HOSPITAL monitoring tool for patients who are stable on oral anticoagulant therapy. An INR of 2.0-3.0 is suggested for deep vein thrombosis/pulmonary embolism. Specimen Blood Performing Organization Address [facility] Phone Number [facility] DEPARTMENT OF PATHOLOGY AND [address] [place] [phone] [place] [phone] Gram stain (07/09/2018 6:45 PM CDT) Pathologist [facility] Gram stain result No WBC's or organisms seen. [facility] Comment: HOSPITAL Specimen Information Specimen Source: Urine Specimen Site: Perez Specimen Urine - Perez Performing Organization Address [facility] Phone Number [facility] DEPARTMENT OF PATHOLOGY AND [address] [place] [phone] [address] Urine culture (07/09/2018 6:45 PM CDT) Pathologist [facility] Urine culture No growth after 24 hours [facility] isolate Comment: HOSPITAL Specimen Information Specimen Source: Urine Specimen Site: Perez Specimen Urine - Perez Performing Organization Address [facility]come Phone Number [facility] DEPARTMENT OF PATHOLOGY AND [address] [place] [phone] [place] [phone] Urinalysis screen and microscopy, with reflex to culture (07/09/2018 4:00 PM CDT) Specimen site Perez [facility] Color, UA Straw [facility] Appearance, UA Clear [facility] Specific gravity, UA 1.014 1.001 - 1.035 [facility] pH, UA 7.0 5.0 - 8.5 [facility] Protein, UA Negative Negative [facility] Glucose, UA Negative Negative [facility] Ketones, UA Negative Negative [facility] Bilirubin, UA Negative Negative [facility] Blood, UA Negative Negative [facility] Nitrite, UA Negative Negative [facility] Urobilinogen, UA <2.0 <2.0 [facility] Leukocyte esterase, Trace (A) Negative [facility] WBC, UA 17 (H) 0 - 1 /HPF [facility] RBC, UA <1 0 - 5 /HPF [facility] Bacteria, UA Few None seen [facility] Yeast, UA None seen [facility] Yeast with None seen [facility] pseudohyphae, HOSPITAL Specimen Urine Performing Organization Address City/[facility] Phone Number [facility] DEPARTMENT OF PATHOLOGY AND [address] [place] [address] GENOMIC MEDICINE [facility] [address] [place] [address] XR Abdomen 1 Vw Portable (07/09/2018 12:16 [...] small bowel are seen. IMPRESSION: As above [facility]-[id number] Procedure Note Interface, Radiology Results Incoming - [...] small bowel are seen. IMPRESSION: As above [facility]-[id number] Performing Organization Address City/[facility] Phone Number [facility] [address] [place] [address] Surgical pathology request (07/09/2018 10:28 AM CDT)Only the most recent of3 resultswithin the time period is included. [facility] DEPARTMENT OF PATHOLOGY AND GENOMIC MEDICINE Surgical pathology See link below [facility] DEPARTMENT OF report for PDF Lab PATHOLOGY AND Report GENOMIC MEDICINE Result status This is Final [facility] DEPARTMENT OF Report for PATHOLOGY AND [id number] GENOMIC MEDICINE Specimen Performing Organization Address City/[facility] Phone Number [facility] DEPARTMENT OF PATHOLOGY AND [address] [place] [address] [facility] Sodium level, syringe (07/09/2018 10:00 AM CDT) Sodium, syringe 137 135 - 148 mEq/L [facility] Specimen Blood Performing Organization Address [facility] Phone Number [facility] DEPARTMENT OF PATHOLOGY AND [address] [place] [phone] [place] [phone] Potassium, syringe (07/09/2018 10:00 AM CDT) Potassium, syringe 3.8 3.5 - 5.0 mEq/L [facility] Specimen Blood Performing Organization Address [facility] Phone Number [facility] DEPARTMENT OF PATHOLOGY AND [address] [place] [phone] [place] [address] Lactic acid, syringe (07/09/2018 10:00 AM CDT) Lactic acid, syringe 1.6 0.5 - 2.2 mmol/L [facility] Specimen Blood Performing Organization Address [facility] Phone Number [facility] DEPARTMENT OF PATHOLOGY AND [address] [place] [phone] Ionized calcium, arterial (07/09/2018 10:00 AM CDT) Ionized calcium, 1.00 (L) 1.11 - 1.32 [facility] arterial mmol/L [facility] Specimen Blood Performing Organization Address City/[facility] Phone Number [facility] DEPARTMENT OF PATHOLOGY AND [address] [place] [phone] [place] [phone] Hemoglobin, syringe (07/09/2018 10:00 AM CDT) Hemoglobin, syringe 13.0 (L) 14.0 - 18.0 g/dL [facility] Specimen Blood Performing Organization Address [facility] Phone Number [facility] DEPARTMENT OF PATHOLOGY AND [address] [place] [phone] [place] [address] Glucose level, syringe (07/09/2018 10:00 AM CDT) Glucose, syringe 139 (H) 65 - 99 mg/dL [facility] Specimen Blood Performing Organization Address City/[facility] Phone Number [facility] DEPARTMENT OF PATHOLOGY AND [address] [place] [phone] [address] Arterial blood gas, corrected (07/09/2018 10:00 AM CDT) pH, arterial 7.41 7.35 - 7.45 [facility] pCO2, arterial 41 35 - 45 mmHg [facility] pO2, arterial 174 (H) 80 - 90 mmHg [facility] Temperature, Celsius 35.5 Degrees C [facility] O2 saturation, 99 95 - 100 % [facility] HOSPITAL pH, arterial 7.43 [facility]OSPITAL pCO2, arterial 38 mmHg [facility] pO2, arterial 167 mmHg [facility] Base excess, arterial 1 -2 - 2 mEq/L [facility] Specimen Blood Performing Organization Address [facility] Phone Number [facility] DEPARTMENT OF PATHOLOGY AND [address] [place] [address] ECG Pre/Post Op (07/06/2018 2:39 PM CDT)Only the most recent of2 resultswithin the time period is included. Ventricular rate 67 [facility] Atrial rate 67 [facility] MD interval 184 [facility] QRSD interval 92 [facility] QT interval 428 [facility] QTC interval 452 [facility] P axis 1 62 [facility] QRS axis 1 8 [facility] T wave axis -24 [facility] MUSE EKG impression Normal sinus [facility] MUSE rhythm-Nonspecific T wave abnormality-Abnormal ECG-In automated comparison with ECG of 27-JAN-2018 13:07,-No significant change was found- Specimen Narrative Performed At Performing Organization Address City/[facility] Phone Number [facility] MUSE [address] [place] [phone] Type and screen (07/06/2018 2:27 PM CDT)Only the most recent of2 resultswithin the time period is included. ABO grouping O [facility] Rh type POS [facility] Antibody screen (gel) NEG [facility] Specimen Blood Performing Organization Address City/[facility] Phone Number [facility] DEPARTMENT OF PATHOLOGY AND [address] [place] [phone] Comprehensive metabolic panel (07/06/2018 2:27 PM CDT)Only the most recent of2 resultswithin the time period is included. Sodium 141 135 - 148 [facility] mEq/L [facility] Potassium 4.4 3.5 - 5.0 [facility] mEq/L [facility] Chloride 103 98 - 112 mEq/L [facility] CO2 26 24 - 31 mEq/L [facility] Anion gap 12@ANIO 7 - 15 mEq/L [facility] BUN 15 6 - 20 mg/dL [facility] Creatinine 0.72 0.70 - 1.20 [facility] mg/dL HOSPITAL Glucose 104 (H) 65 - 99 mg/dL [facility] Calcium 9.1 8.3 - 10.2 [facility] mg/dL [facility] Protein 7.7 6.3 - 8.3 g/dL [facility] Comment: HOSPITAL [place] 4.6-7.0 g/dL 1 week 4.4-7.6 g/dL 7 months-1year5.1-7.3 g/dL 1-2 years5.6-7.5 g/dL >3 years6.0-8.0 g/dL 18-150 6.3-8.3 g/dL Albumin 3.6 3.5 - 5.0 g/dL [facility] A/G ratio 0.9 0.7 - 3.8 [facility] Alkaline phosphatase 75 40 - 129 U/L [facility] AST 27 10 - 50 U/L [facility] ALT 26 5 - 50 U/L [facility] Total bilirubin <0.2 0.0 - 1.2 [facility] mg/dL HOSPITAL Specimen Plasma specimen Performing Organization Address City/[facility] Phone Number [facility] DEPARTMENT OF PATHOLOGY AND [address] [place] [address] [facility] [address] [place] [address] CT Chest External Study (05/18/2018 8:52 AM CDT)Only the most recent of2 resultswithin the time period is included. Specimen Narrative Performed At This exam was not acquired at a [facility] facility and has not been RADIANT interpreted by a [facility] Provider.The exam was imported into our imaging system for comparisons purposes. Performing Organization Address City/State/Zipcode Phone Number [facility] [address] [place] [address] CT Abd/Pelvic External Study (05/18/2018 8:52 AM CDT) Specimen Narrative Performed At This exam was not acquired at a [facility] facility and has not been RADIANT interpreted by a [facility] Provider.The exam was imported into our imaging system for comparisons purposes. 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 ([id number], [id number]) This result has been reviewed and approved by Zhanna Das, Relief Driller Test information: Gastrointestinal Stromal Tumor Mutation CHARACTERISTICS: [...] variant classes is available through this link: [email or web address] CLINICAL DISCLAIMER: Results of this test must always be interpreted within the clinical context and other relevant data and should not be used alone for a diagnosis of malignancy. This test is not intended to detect minimal residual disease. Test developed and characteristics determined by [facility]. See Compliance Statement B: myEDmatch/CS ---- Order comments Gastrointestinal Stromal Tumor Mutation BLOCK [id number] Gastrointestinal Stromal Tumor Mutation [id number] Test performed by: [facility] [address] [place], [place] [id number] Specimen Narrative Performed At [facility] Gastrointestinal Stromal Tumor [id number] block [id number] DOS: 02/06/2019 03/17/201811:37 MPAJGS Performing Organization Address City/State/Zipcode Phone Number [facility] [address] [place] [address] [facility] [address] [place] [address] XR Chest 1 Vw Portable (02/06/2018 11:[address] ASSISTANT) Specimen Narrative Performed At EXAMINATION:XR CHEST 1 VW PORTABLE HM [facility] CLINICAL HISTORY:57 years Male Confirm new central line placement [facility] COMPARISON:09/12/2017 IMPRESSION: 1.Right IJ line terminates over the proximal SVC. No pneumothorax. 2.Cardiomediastinal silhouette is enlarged with broadening of the superior mediastinum. Some of this is likely related to rotation. 3.Bibasilar atelectasis. No consolidation or effusion. 4.Degenerative changes in the spine. [facility]-[id number] Procedure Note Hm Interface, Radiology Results Incoming - 02/06/2018 11:[address] ASSISTANT EXAMINATION: XR CHEST 1 VW PORTABLE CLINICAL HISTORY:57 years Male Confirm new central line placement [facility] COMPARISON: 09/12/2017 IMPRESSION: 1. Right IJ line terminates over the proximal SVC. No pneumothorax. 2. Cardiomediastinal silhouette is enlarged with broadening of the superior mediastinum. Some of this is likely related to rotation. 3. Bibasilar atelectasis. No consolidation or effusion. 4. Degenerative changes in the spine. [facility]-[id number] Performing Organization Address [facility] [place] Phone Number [facility] [address] [place] [address] after 07/19/2017 Advance Directives Patient has advance care planning documents on file. For more information, please contact:Ariza F[address]qlgci[address] [phone]
--- NOTE | 2018-07-20 10:03 | EDPHYS ---
Physician Documentation [facility] Name: Kenny Noriega Age: 57 yrs Sex: Male : 1960 Arrival Date: 07/20/2018 Time: 09:11 Bed 20 Private MD: Tyler Amador ED Physician Harvey Lindsey HPI: 07/20 09:59 This 57 yrs old Black Male presents to ER via Ambulatory with complaints of CHANGE BAG marques FOR FEEDING TUBE. 09:59 The patient presents with abdominal pain kangarroo pump needs started. Onset: The marques symptoms/episode began/occurred just prior to arrival, this morning. The symptoms do not radiate. Associated signs and symptoms: none. Severity of pain: At its worst the pain was mild in the emergency department the pain is unchanged. The patient has not experienced similar symptoms in the past. Historical: - Allergies: 09:16 No Known Allergies; sv - PMHx: 09:16 Cancer; stomach tumor; sv - PSHx: 09:16 gatsric bypass; PEG tube placed; stomach removed; sv - Immunization history:: Adult Immunizations up to date. - Family history:: not pertinent. - Social history:: Smoking status: Patient/guardian denies using tobacco. - Ebola Screening: : Patient negative for fever greater than or equal to 101.5 degrees Fahrenheit, and additional compatible Ebola Virus Disease symptoms Patient denies exposure to infectious person Patient denies travel to an Ebola-affected area in the 21 days before illness onset. ROS: 09:59 Constitutional: Negative for fever, chills, and weight loss, Eyes: Negative for injury, marques pain, redness, and discharge, ENT: Negative for injury, pain, and discharge, Neck: Negative for injury, pain, and swelling, Cardiovascular: Negative for chest pain, palpitations, and edema, Respiratory: Negative for shortness of breath, cough, wheezing, and pleuritic chest pain, Back: Negative for injury and pain, : Negative for injury, bleeding, discharge, and swelling, MS/Extremity: Negative for injury and deformity, Skin: Negative for injury, rash, and discoloration, Neuro: Negative for headache, weakness, numbness, tingling, and seizure, Psych: Negative for depression, anxiety, suicide ideation, homicidal ideation, and hallucinations, Allergy/Immunology: Negative for hives, rash, and allergies, Endocrine: Negative for neck swelling, polydipsia, polyuria, polyphagia, and marked weight changes, Hematologic/Lymphatic: Negative for swollen nodes, abnormal bleeding, and unusual bruising. 09:59 Abdomen/GI: Positive for abdominal pain, of the right upper quadrant, left upper quadrant, right lower quadrant and left lower quadrant. Exam: 09:59 Constitutional: This is a well developed, well nourished patient who is awake, alert, marques and in no acute distress. Head/Face: Normocephalic, atraumatic. Eyes: Pupils equal round and reactive to light, extra-ocular motions intact. Lids and lashes normal. Conjunctiva and sclera are non-icteric and not injected. Cornea within normal limits. Periorbital areas with no swelling, redness, or edema. ENT: Nares patent. No nasal discharge, no septal abnormalities noted. Tympanic membranes are normal and external auditory canals are clear. Oropharynx with no redness, swelling, or masses, exudates, or evidence of obstruction, uvula midline. Mucous membranes moist. Neck: Trachea midline, no thyromegaly or masses palpated, and no cervical lymphadenopathy. Supple, full range of motion without nuchal rigidity, or vertebral point tenderness. No Meningismus. Chest/axilla: Normal chest wall appearance and motion. Nontender with no deformity. No lesions are appreciated. Cardiovascular: Regular rate and rhythm with a normal S1 and S2. No gallops, murmurs, or rubs. Normal PMI, no JVD. No pulse deficits. Respiratory: Lungs have equal breath sounds bilaterally, clear to auscultation and percussion. No rales, rhonchi or wheezes noted. No increased work of breathing, no retractions or nasal flaring. Back: No spinal tenderness. No costovertebral tenderness. Full range of motion. Male : Normal genitalia with no discharge or lesions. Skin: Warm, dry with normal turgor. Normal color with no rashes, no lesions, and no evidence of cellulitis. MS/ Extremity: Pulses equal, no cyanosis. Neurovascular intact. Full, normal range of motion. Neuro: Awake and alert, GCS 15, oriented to person, place, time, and situation. Cranial nerves II-XII grossly intact. Motor strength 5/5 in all extremities. Sensory grossly intact. Cerebellar exam normal. Normal gait. Psych: Awake, alert, with orientation to person, place and time. Behavior, mood, and affect are within normal limits. 09:59 Abdomen/GI: Inspection: distension, Bowel sounds: normal, Liver: no appreciated palpable abnormalities, Hernia: not appreciated. Vital Signs: 09:16 BP 142 / 77; Pulse 88; Resp 18; Temp 97.2; Pulse Ox 98% ; Weight 117.93 kg; Height 5 sv ft. 9 in. (175.26 cm); Pain 0/10; 09:16 Body Mass Index 38.39 (117.93 kg, 175.26 cm) sv MDM: 09:17 Patient medically screened. [facility] 10:01 Data reviewed: vital signs, nurses notes. [facility] Administered Medications: No medications were administered Disposition: 07/20/18 10:02 Discharged to Home. Impression: Abdominal tenderness. - Condition is Stable. - Discharge Instructions: Abdominal Pain, Adult, Abdominal Pain, Adult, [id number], Total Gastrectomy, Care After, Total Gastrectomy. - Medication Reconciliation Form, Thank You Letter, Antibiotic Education, Prescription Opioid Use form. - Follow up: Tyler Amador MD; When: 2 - 3 days; Reason: Recheck today's complaints, Continuance of care, Re-evaluation by your physician. Follow up: Becca Motley MD; When: 2 - 3 days; Reason: Recheck today's complaints, Continuance of care, Re-evaluation by your physician. - Problem is new. - Symptoms have improved. Signatures: Bouchra Andrade RN RN sv Anderson, Corey, MD MD cha Elliot, Andie ae3 Corrections: (The following items were deleted from the chart) 10:27 10:02 07/20/2018 10:02 Discharged to Home. Impression: Abdominal tenderness. Condition ae3 is Stable. Forms are Medication Reconciliation Form, Thank You Letter, Antibiotic Education, Prescription Opioid Use. Follow up: Tyler Amador; When: 2 - 3 days; Reason: Recheck today's complaints, Continuance of care, Re-evaluation by your physician. Follow up: Becca Motley; When: 2 - 3 days; Reason: Recheck today's complaints, Continuance of care, Re-evaluation by your physician. Problem is new. Symptoms have improved. [facility]
--- NOTE | 2018-07-20 10:03 | ER ---
Nurse's Notes [facility] Name: Kenny Noriega Age: 57 yrs Sex: Male : 1960 Arrival Date: 07/20/2018 Time: 09:11 Bed 20 Private MD: Tyler Amador Diagnosis: Abdominal tenderness Presentation: 07/20 09:15 Presenting complaint: Patient states: Pt has a new PEG tube but the food in the feeding sv bag is thick and unable to go through the tubing, needs help getting it replaced. Transition of care: patient was not received from another setting of care. Onset of symptoms was July 20, 2018. Risk Assessment: Do you want to hurt yourself or someone else? Patient reports no desire to harm self or others. Initial Sepsis Screen: Does the patient meet any 2 criteria? No. Patient's initial sepsis screen is negative. Does the patient have a suspected source of infection? No. Patient's initial sepsis screen is negative. Care prior to arrival: None. 09:15 Method Of Arrival: Ambulatory sv 09:15 Acuity: MARNI 4 sv Historical: - Allergies: 09:16 No Known Allergies; sv - PMHx: 09:16 Cancer; stomach tumor; sv - PSHx: 09:16 gatsric bypass; PEG tube placed; stomach removed; sv - Immunization history:: Adult Immunizations up to date. - Family history:: not pertinent. - Social history:: Smoking status: Patient/guardian denies using tobacco. - Ebola Screening: : Patient negative for fever greater than or equal to 101.5 degrees Fahrenheit, and additional compatible Ebola Virus Disease symptoms Patient denies exposure to infectious person Patient denies travel to an Ebola-affected area in the 21 days before illness onset. Screenin:24 Abuse screen: Denies threats or abuse. Nutritional screening: No deficits noted. ae3 Tuberculosis screening: No symptoms or risk factors identified. Fall Risk None identified. Assessment: 10:20 General: Appears in no apparent distress. comfortable, Behavior is calm, cooperative, ae3 appropriate for age. Pain: Denies pain. Neuro: Level of Consciousness is awake, alert, obeys commands, Oriented to person, place, time, situation, Appropriate for age. Cardiovascular: Patient's skin is warm and dry. Respiratory: Airway is patent. GI: Abdomen is round Surgical emily noted to umbilical area, also noted, feeding tube with bandages, site appears healthy, no bleeding or drainage noted. Patient states night time feeding did not complete and feeding liquid became thick and unable to pass through feeding tube. Vital Signs: 09:16 BP 142 / 77; Pulse 88; Resp 18; Temp 97.2; Pulse Ox 98% ; Weight 117.93 kg; Height 5 sv ft. 9 in. (175.26 cm); Pain 0/10; 09:16 Body Mass Index 38.39 (117.93 kg, 175.26 cm) sv ED Course: 09:11 Patient arrived in ED. ag5 09:12 Tyler Amador MD is Private Physician. ag5 09:16 Triage completed. sv 09:16 Arm band placed on. sv 09:17 Harvey Lindsey MD is Attending Physician. [facility] 09:37 Patient moved back from CT. ae3 10:01 Tyler Amador MD is Referral Physician. marques 10:02 Becca Motley MD is Referral Physician. [facility] 10:23 Assisted patient apply new feeding bag appliance. Feeding is working at this time. ae3 Patient did not have IV access during this emergency room visit. 10:24 Patient has correct armband on for positive identification. Bed in low position. Call ae3 light in reach. Side rails up X 1. Pulse ox on. Administered Medications: No medications were administered Outcome: 10:02 Discharge ordered by . marques 10:24 Condition: stable ae3 10:27 Discharged to home ambulatory. ae3 10:27 Discharge instructions given to patient, Instructed on discharge instructions, follow up and referral plans. Feeding bag application. Demonstrated understanding of 10:27 Patient left the ED. ae3 Signatures: Bouchra Andrade, RN RN Harvey Lindsey MD MD cha Gaskin, Ajare agZoey Woodall ae3
== END 2018-07-20 10:27 | disposition home or self-care (01) ==
LOC: ER 09:09
DX: R10.819 Abdominal tenderness, unspecified site (principal); Z85.9 Personal history of malignant neoplasm, unspecified; Z90.3 Acquired absence of stomach [part of]
CPT/HCPCS: 99284